=== PATIENT | female | born 1960 | race Caucasian/White ===

== ENCOUNTER 2018-01-27 15:04 | Inpatient (IN) | payer OTHER, MEDICARE ==
[~2018-01-27] VITALS: Ht 157.5 cm; Wt 64.6 kg
[~2018-01-27 15:04] MED LIST: PREDNISONE 20MG20 MG PO
--- NOTE | 2018-01-27 17:52 | ED GENERAL ADULT ---
History of Present Illness General Chief Complaint: General Adult Stated Complaint: LOW BACK PAIN, LT ANKLE PAIN, URGENT URINATION Source: patient, old records Exam Limitations: no limitations Allergies Coded Allergies: venom-honey bee (bee venom (honey bee)) (THROAT CLOSES 11/26/15) Uncoded Allergies: ANY INSECT BITES (WELTS 01/27/18) Reconcile Medications Atorvastatin Calcium 10 MG TABLET 1 TAB PO DAILY CHOLESTEROL (Reported) Baclofen 10 MG TABLET 1 TAB PO 5XDAILY MUSCLE RELAXER (Reported) Cyanocobalamin (Vitamin B-12) (Cyanocobalamin Injection) 1,000 MCG/ML VIAL 1 ML IM QWED SUPPLEMENT (Reported) Dextroamphetamine/Amphetamine (Dextroamp-Amphetamin 10 MG Tab) 10 MG TABLET 1 TAB PO TID ALERTNESS (Reported) Diazepam 2 MG TABLET 1 TAB PO TID MUSCLE SPASMS (Reported) Duloxetine HCl 60 MG CAPSULE.DR 1 CAP PO DAILY DEPRESSION (Reported) Furosemide 20 MG TABLET 1 TAB PO DAILY PRN LEG SWELLING (Reported) ONLY NEEDED FOR LEG SWELLING Gabapentin 600 MG TABLET 1 TAB PO 5XDAILY NERVE PAIN (Reported) Hydrocodone/Acetaminophen (Hydrocodon-Acetaminoph 7.5-325) 7.5 MG-325 MG TABLET 1 TAB PO Q6PRN PRN PAIN (Reported) Latanoprost (Xalatan) 0.005 % DROPS 1 GTT OU QPM GLAUCOMA (Reported) Levothyroxine Sodium (Synthroid) 150 MCG TABLET 1 TAB PO DAILY THYROID ( Reported) Lisinopril 5 MG TABLET 1 TAB PO QHS BP (Reported) Lubiprostone (Amitiza) 8 MCG CAPSULE 1 CAP PO DAILY GI (Reported) Mirabegron (Myrbetriq) 50 MG TAB.ER.24H 1 TAB PO DAILY BLADDER (Reported) Olanzapine 10 MG TABLET 1 TAB PO DAILY ANXIETY (Reported) Oxycodone HCl (Oxycontin) 10 MG TAB.ER.12H 1 TAB PO TID PAIN (Reported) Oxycodone HCl (Oxycontin) 10 MG TAB.ER.12H 1 TAB PO TID PAIN (Reported) Pantoprazole Sodium 20 MG TABLET.DR 1 TAB PO DAILY GI (Reported) Prednisone 50 MG TABLET 1 TAB PO AD STEROID (Reported) TAKES IT NEEDED DURING AN EXACERBATION, NOT ON A DAILY BASIS Venlafaxine HCl (Venlafaxine HCl ER) 150 MG CAP.ER.24H 2 CAP PO DAILY DEPRESSION (Reported) Zolpidem Tartrate 10 MG TABLET 1 TAB PO QHS PRN SLEEP (Reported) Triage Note: PT TO ER STATES THAT SHE HAS MS AND THAT SHE HAD HER INFUSION TODAY AND DECIDED TO COME TO ER DUE TO SHE IS HAVING LOW BACK PAIN AND L FOOT PAIN AFTER A FALL ABOUT 1.5 WEEKS AGO. ALSO STATES THAT SHE STRAIGHT CATHS HERSELF BUT WHILE AT HER TREATMENT SHE VOIDED A LITTLE BIT IN HER PANTS Triage Nurses Notes Reviewed? yes Onset: Abrupt Duration: week(s):, constant, getting worse Timing: recent history Injury Environment: home Severity: moderate, severe Severity Numbers: 10 No Modifying Factors: none Associated Symptoms: denies HPI: 57 year-old female with past medical history of multiple sclerosis, HTN, hld, depression and hypothyroidism presents to the ER complaining of symptoms consistent with an MS exacerbation she reports history of similar episodes in the past. She states over the past several weeks she has had multiple falls at home including in the shower sustaining injury to her left ankle and lower back. Her last fall was a week ago. She denies loss of consciousness during these episodes she states she falls secondary to her chronic weakness. She is followed by neurologist Dr. tamez- on citoxan infiusions every 21 days. last infusion today. no Fever no chills (David Hopkins) Vital Signs & Intake/Output Vital Signs & Intake/Output Vital Signs Date Time Temp Pulse Resp B/P B/P Pulse O2 O2 Flow FiO2 Mean Ox Delivery Rate 01/278 97.2 92 18 115/73 98 Room Air 01/27 1930 98 18 123/73 01/27 1509 97.0 114 18 138/74 98 Room Air (Yeny OLMOS,Oracio Moore) Past History Travel History Traveled to [place] past 21 day No Medical History Any Pertinent Medical History? 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 No (David Hopkins) Review of Systems Review of Systems Constitutional: Reports: see HPI. Comments Review of systems: See HPI, All other systems negative. Constitutional, no chills no fever HEENT: no sore throat no congestion Cardiovascular: No chest pain Skin: no rashes, no change in skin Respiratory: No dyspnea no cough no sputum gI: no nausea, no vomiting : No dysuria No hematuria, no frequency Muscle skeletal: see hpi Neurologic: , no headache Psych: No stress Heme/endocrine: No bruising Immunology: No lymphadenopathy (David Hopkins) Physical Exam Physical Exam General Appearance: well developed/nourished, alert, awake Comments: Well-developed well-nourished person in no acute distress HEENT: Normal EENT exam; PERRL, EOMI, no nystagmus. HEAD is atraumatic. moist mucous membranes. Neck: Supple, normal range of motion Back: Atraumatic right-sided paralumbar tenderness on patient no midline tenderness, no CVA tenderness. Full range of motion Cardiovascular: Regular rate and rhythms no murmurs rubs or gallops, normal JVP Respiratory: Chest nontender.There were no bony deformities, no asymmetry. No respiratory distress. Patient speaking in full complete sentences. Breath sounds clear to auscultation bilaterally: NO W/R/R Abdomen: Soft, nontender nondistended, no appreciable organomegaly. Normal bowel sounds. No rebound/guarding, No appreciable enlargement of the abdominal aorta, No ascites. Upper Extremity: No edema, full range of motion of extremities, 5 out of 5 strength noted to bilateral upper extremities Hip/Pelvis: Atraumatic/Stable. FROM. No pain with pelvic compression Knee: Atraumatic/stable. FROM. No joint swelling, no effusion. No laxity. Negative martita/anterior drawer test. No pain with ROM Leg: Atraumatic. Nontender. No edema, 5 out of 5 strength in the lower extremity, normal dorsiflexion of great toe bilaterally, gross sensation is intact, patellar tendon reflex 2+ bilaterally. Ankle/Foot: Ankle with moderate tenderness laterally over the lateral ligaments. No bony tenderness. No medial tenderness. Range of motion is near full but somewhat limited due to pain. No instability is noted. Skin is intact, swelling noted to the lateral malleolus tenderness to palpation the foot is neurovascularly intact with sensation and motor grossly intact. There is no foot tenderness or fifth metatarsal tenderness. Able to move all toes. Palpable and intact achilles tendon. There is no proximal tib/fib tenderness Pulses: Normal/equal DP/PT pulses bilaterally. Brisk cap refill Neuro: Alert oriented x3, motor sensory normal, cranial nerves II through XII grossly intact. There were no obvious focal neurologic abnormalities. Skin: No appreciable rash on exposed skin, skin is warm and dry. Psych: Mood and affect is normal, memory and judgment is normal. Core Measures ACS in differential dx? No CVA/TIA Diagnosis: No Sepsis Present: No Sepsis Focused Exam Completed? No (Stephanie GIBSON,David) Progress Differential Diagnoses I considered the following diagnoses in my evaluation of the patient: [ms exacerbation, fx, sprain, contusion, electrolyte abnor, dehydration] Diagnostic Imaging: Viewed by Me: Radiology Read. Discussed w/RAD: Radiology Read. Radiology Impression: PATIENT: EDVIN CHAVEZ PRESENT AGE: 57 PATIENT ACCOUNT NO: [id number] : 61 LOCATION: [facility] ORDERING PHYSICIAN: David GIBSON SERVICE DATE: 01/27/18 EXAM TYPE: RAD - XRY- ANKLE 3 OR MORE VIEWS L EXAMINATION: XR ANKLE, LEFT CLINICAL INFORMATION: Pain after fall COMPARISON: None TECHNIQUE: AP, lateral, and mortise views of the left ankle. FINDINGS: Soft tissues of the lateral ankle are mildly swollen. The talar dome is well-positioned within the intact ankle mortise. Ankle joint space and syndesmotic space are normal. No evidence of acute fracture or subluxation. The visualized tarsal bones and metatarsal bases are unremarkable. IMPRESSION: Post traumatic soft tissue swelling of the lateral ankle. No acute fracture or subluxation. DICTATED BY: Tk León MD DATE/TIME DICTATED:01/27/181923 SPECIMEN BOSS:RANDALL DATE/TIME TRANSCRIBED:01/27/181923 CONFIDENTIAL, DO NOT COPY WITHOUT APPROPRIATE AUTHORIZATION. <Electronically signed in Other Vendor System> SIGNED BY: Tk León MD 01/27/181927, PATIENT: EDVIN CHAVEZ RECORD NO: [id number] PRESENT AGE: 57 PATIENT ACCOUNT NO: [id number] : 62 LOCATION: [facility] ORDERING PHYSICIAN: David GIBSON SERVICE DATE : 01/27/18 EXAM TYPE: RAD - XRY-LUMBOSACRAL SPINE AP & LAT EXAMINATION: XR LUMBOSACRAL SPINE CLINICAL INFORMATION: Status post fall with right-sided pain COMPARISON: Radiographs from 08/22/2008. CT images of the abdomen from 2014. TECHNIQUE: Lumbosacral spine, 3 views FINDINGS: No acute findings compared to 10/22/2014. Chronic, severe degenerative disc disease of L3-L4, L4-L5 and L5- S1 as manifest by loss of disc space, vacuum disc phenomenon, endplate sclerosis , endplate irregularity and osteophytosis. There is chronic, moderate, predominantly left-sided disc space loss at L2-L3. Levoscoliosis of 14 degrees is measured from the superior endplate of L3 to the inferior endplate of L4. No acute fractures in the anterior or posterior elements. The sacrum and sacroiliac joints are unremarkable. Spinal electrodes enter the posterior epidural space at the T12-L1 level and ascend into the thoracic spinal canal. IMPRESSION: 1. No evidence of acute fracture or traumatic subluxation within the lumbar spine. 2. Chronic severe, multilevel degenerative disc disease and levoscoliosis of the lumbar spine in this patient with history of multiple sclerosis. Consider possibility of Charcot spinal arthropathy. DICTATED BY: Tk León MD DATE/ TIME DICTATED:01/27/181924 SPECIMEN BOSS:ARNDALL DATE/TIME TRANSCRIBED: 01/27/181924 CONFIDENTIAL, DO NOT COPY WITHOUT APPROPRIATE AUTHORIZATION. < Electronically signed in Other Vendor System> SIGNED BY: Tk León MD 01/27/181933 Initial ED EKG: none (Stephanie GIBSON,David) Plan of Care: Orders Procedure Date/time Status Regular Diet 01/28 B Active XRY-PORTABLE CHEST XRAY 01/28 2112 Active Intake & Output 01/28 2056 Active Patient Data 01/28 2008 Active Misc Message 01/28 1952 Active ED Holding Orders 01/28 1952 Active Admit to inpatient 01/28 1952 Active Vital Signs 01/28 1952 Active Code Status 05/24 1952 Active COMPREHENSIVE METABOLIC PANEL 01/27 1736 Complete CBC WITHOUT DIFFERENTIAL 01/27 173 Complete URINALYSIS 01/27 1512 Complete Current Medications Sig/Tess Start time Last Medication Dose Stop Time Status Admin Methylprednisolone 1,000 MG 1800 01/28 1800 UNVr (Solu Medrol) Dextrose/Water 1,000 ML (D5W 1000) Laboratory Tests 01/27/18 1753: Anion Gap 14, Estimated GFR > 60, BUN/Creatinine Ratio 26.3 H, Glucose 163 H, Calcium 10.3 H, Total Bilirubin 0.5, AST 84 H, ALT 65 H, Alkaline Phosphatase 107, Total Protein 7.7, Albumin 4.8, Globulin 2.9, Albumin/Globulin Ratio 1.7, CBC w Diff NO MAN DIFF REQ, RBC 4.01 L, MCV 94.2, MCH 31.9 H, MCHC 33.9, RDW 13.6, MPV 7.7, Gran % 93.8 H, Lymphocytes % 5.4 L, Monocytes % 0.6 L, Eosinophils % 0.1, Basophils % 0.1, Absolute Granulocytes 7.8 H, Absolute Lymphocytes 0.4 L, Absolute Monocytes 0 L, Absolute Eosinophils 0, Absolute Basophils 0 01/27/18 1631: Urine Color YEL, Urine Clarity CLEAR, Urine pH 6.0, Ur Specific [place] 1.015, Urine Protein NEG, Urine Ketones NEG, Urine Nitrite NEG, Urine Bilirubin NEG, Urine Urobilinogen 0.2, Ur Leukocyte Esterase TRACE H, Ur Microscopic SEDIMENT EXAMINED, Urine RBC RARE, Urine WBC RARE, Ur Epithelial Cells FEW, Urine Bacteria MOD H, Urine Hemoglobin NEG, Urine Glucose NEG Discussed with patient plan of care medicated with Dilaudid 1 mg IV x-rays ordered labs ordered. I spoke with the patient's neurologist Dr. tamez- advised to start the patient on 1 g Solu-Medrol daily agrees with plan otherwise. Case discussed with Dr. Saini agrees with plan (Stephanie GIBSON,David) (Yeny OLMOS,Oracio Moore) Departure Departure Time of Disposition: 1947 Disposition: STILL A PATIENT Condition: Stable Clinical Impression Primary Impression: Exacerbation of multiple sclerosis Secondary Impressions: Frequent falls Referrals: Allie Jack MD (PCP/Family) Departure Forms: Customer Survey General Discharge Information Admission Note Spoke With: Georgia Duron MD Documentation of Exam: Documentation of any treatments & extenuating circumstances including Concerns Regarding Discharge (functional status, medication knowledge or non-compliance, living conditions, etc.) that warrant an admission rather than observation: [ ivsteroids, pain control,neuro, pt consult multiple falls, premature discharge would be medically harmul (David Hopkins) PA/SPECIFICATION CONSULTANT Co-Sign Statement Statement: ED Attending supervision documentation- [X] I saw and evaluated the patient. I have also reviewed all the pertinent lab results and diagnostic results. I agree with the findings and the plan of care as documented in the PA's/SPECIFICATION CONSULTANT's documentation. Patient presents for evaluation of recent falling, past history of multiple sclerosis. Patient has had low back pain and left ankle pain as a result of her falls. Physical examination reveals mild swelling of the left ankle and decreased range of motion of the back secondary to discomfort. [] I have reviewed the ED Record and agree with the PA's/SPECIFICATION CONSULTANT's documentation. [] Additions or exceptions (if any) to the PAs/SPECIFICATION CONSULTANT's note and plan are summarized below: [] (Yeny OLMOS,Oracio Moore) Critical Care Note Critical Care Note Critical Care Time: non-applicable (David Hopkins)
[2018-01-27 18:07] LABS: ABSOLUTE BASOPHIL COUNT 0 /CUMM (0.0-0.2); ABSOLUTE EOSINOPHIL COUNT 0 /CUMM (0.0-0.7); ABSOLUTE GRANULOCYTE CT 7.8 /CUMM (1.4-6.5); ABSOLUTE LYMPH COUNT 0.4 /CUMM (1.2-3.4); ABSOLUTE MONOCYTE COUNT 0 /CUMM (0.10-0.60); BASOPHIL % 0.1 % (0.0-2.0); EOSINOPHIL % 0.1 % (0-5); HEMATOCRIT 37.8 % (37-47); MEAN CORPUSCULAR HGB 31.9 PG (27.0-31.0); MEAN CORPUSCULAR HGB CONC 33.9 G/DL (33.0-37.0); MEAN CORPUSCULAR VOLUME 94.2 FL (81.0-99.0); MEAN PLATELET VOLUME 7.7 FL (7.4-10.4); PLATELET COUNT 282 /CUMM (130-400); RBC DISTRIBUTION WIDTH 13.6 % (11.5-14.5); RED BLOOD CELL CT 4.01 /CUMM (4.20-5.40); WHITE BLOOD CELL COUNT 8.4 /CUMM (4.8-10.8)
[2018-01-27 18:18] LABS: GRANULOCYTE % 93.8 % (42.2-75.2)
--- NOTE | 2018-01-27 19:28 | RADIOLOGY REPORT ---
EXAMINATION: XR ANKLE, LEFT CLINICAL INFORMATION: Pain after fall COMPARISON: None TECHNIQUE: AP, lateral, and mortise views of the left ankle. FINDINGS: Soft tissues of the lateral ankle are mildly swollen. The talar dome is well-positioned within the intact ankle mortise. Ankle joint space and syndesmotic space are normal. No evidence of acute fracture or subluxation. The visualized tarsal bones and metatarsal bases are unremarkable. IMPRESSION: Post traumatic soft tissue swelling of the lateral ankle. No acute fracture or subluxation.
--- NOTE | 2018-01-27 19:34 | RADIOLOGY REPORT ---
EXAMINATION: XR LUMBOSACRAL SPINE CLINICAL INFORMATION: Status post fall with right-sided pain COMPARISON: Radiographs from 08/22/2008. CT images of the abdomen from 10/22/2014. TECHNIQUE: Lumbosacral spine, 3 views FINDINGS: No acute findings compared to 10/22/2014. Chronic, severe degenerative disc disease of L3-L4, L4-L5 and L5-S1 as manifest by loss of disc space, vacuum disc phenomenon, endplate sclerosis, endplate irregularity and osteophytosis. There is chronic, moderate, predominantly left-sided disc space loss at L2-L3. Levoscoliosis of 14 degrees is measured from the superior endplate of L3 to the inferior endplate of L4. No acute fractures in the anterior or posterior elements. The sacrum and sacroiliac joints are unremarkable. Spinal electrodes enter the posterior epidural space at the T12-L1 level and ascend into the thoracic spinal canal. IMPRESSION: 1. No evidence of acute fracture or traumatic subluxation within the lumbar spine. 2. Chronic severe, multilevel degenerative disc disease and levoscoliosis of the lumbar spine in this patient with history of multiple sclerosis. Consider possibility of Charcot spinal arthropathy.
[2018-01-27] MEDS ORDERED: XALATAN2.5 ML OU (19:44)
[2018-01-27] MEDS ORDERED: CYANOCOBAL1000 MCG/2 IM (19:45)
[2018-01-27] MEDS ORDERED: GABAPENTIN600 M1 PO (19:45)
[2018-01-27] MEDS ORDERED: SYNTHROID150 MCG PO (19:46)
[2018-01-27] MEDS ORDERED: ZOLPIDEM TARTRA10 M1 PO (19:46)
[2018-01-27] MEDS ORDERED: OXYCONTIN10 M1 PO ×2 (19:46→21:16)
[2018-01-27] MEDS ORDERED: DIAZEPAM2 M1 PO (19:46)
[2018-01-27] MEDS ORDERED: HYDROCODON-ACE1 EAC2 PO (19:47)
[2018-01-27] MEDS ORDERED: ATORVASTATIN CA10 M1 PO (19:47)
[2018-01-27] MEDS ORDERED: DEXTROAMP-AMPHE10 MG PO (19:47)
[2018-01-27] MEDS ORDERED: MYRBETRIQ50 M1 PO (19:47)
[2018-01-27] MEDS ORDERED: PANTOPRAZOLE SO20 M1 PO (19:50)
[2018-01-27] MEDS ORDERED: DULOXETINE HCL60 MG PO (19:50)
[2018-01-27] MEDS ORDERED: PREDNISONE50 M1 PO (19:51)
[2018-01-27] MEDS ORDERED: LISINOPRIL5 M1 PO (19:51)
[2018-01-27] MEDS ORDERED: AMITIZA8 MC1 PO (19:52)
[2018-01-27] MEDS ORDERED: VENLAFAXINE HC150 MG PO (19:52)
[2018-01-27] MEDS ORDERED: BACLOFEN10 M1 PO (19:55)
[2018-01-27] MEDS ORDERED: OLANZAPINE10 M1 PO (19:56)
--- NOTE | 2018-01-27 20:15 | History & Physical ---
BrianThais Magdaleno Marko 01/27/18 2009: General Information and HPI MD Statement: I have seen and personally examined EDVIN CHAVEZ and documented this H&P. The patient is a 57 year old F who presented with a patient stated chief complaint of [MS Exacerbation]. Source of Information: patient, old records Exam Limitations: no limitations History of Present Illness: Ms. Chavez is a 57yo F w/ PMH of multiple sclerosis, hypertension, hyperlipidemia , GERD, IBS, diverticulosis, urinary incontinence with self catheter, rheumatoid arthritis, anxiety/depression, hypothyroidism, symptoms consistent with an MS exacerbation she reports history of similar episodes in the past. She states over the past several weeks she has had multiple falls at home including in the shower sustaining injury to her left ankle and lower back. Her last fall was a week ago. She denies loss of consciousness during these episodes she states she falls secondary to her chronic weakness. She is followed by neurologist Dr. tamez- on citoxan infiusions every 21 days. last infusion today. no Fever no chills During our clinical interaction, patient denied fever/lightheadedness/ diaphoresis/night sweat/weight change/cough/SOB/Chest Pain/Palpitation/Abdominal pain/bowel movement or urinary abnormality, or other skin/musculoskeletal/ neurological/mood disorders, or dietary/appetite change. -Smoking: -Alcohol: -Rec Drugs: On admission, Vitals: Afebrile, tachycardia 114, RR 18, BP 130/74, 98% on room air Physical exam -Gen.: AO x3, cooperative, no distress, -HEENT: NCAT, PERRL, EOMI, anicteric sclera, moist mucous membranes -Neck: Supple, no JVD, trachea midline, mild accessory respiratory muscle use -Cardio: Normal S1/S2 without significant murmurs/gallops/rubs -Pulmonary: grossly normal air movement w/ clear auscultation -Abdomen: Soft, nontender, nondistended, bowel sounds intact -Neuro: Awake and alert, cranial nerves II through XII grossly intact -Extremity: Normal pulses/capillary refill, no cyanosis/clubbing/edema -CBC: Unremarkable except for granulocytes 93.8% -BMP: Unremarkable except BUN 21, calcium 10.3 (albumin 4.8), -XR lumbar spine: 1. No evidence of acute fracture or traumatic subluxation within the lumbar spine. 2. Chronic severe, multilevel degenerative disc disease and levoscoliosis of the lumbar spine in this patient with history of multiple sclerosis. Consider possibility of Charcot spinal arthropathy. -Interventions in ER: Solu-Medrol 1000 mg 1 Problem list & Assessment: #Multiple sclerosis exacerbation Hospital Course: - Admit to general medicine -Nursing (O2, TRCNeb, SS/Accuchek, Neurocheck) -PT/OT -Fluids -Meds -Hold Meds -Consult -Misc todo -Lab -Microbiology -Pain DVT prophylaxis Heparin + ALPS Regular Diet Full Code Allergies/Medications Allergies: Coded Allergies: venom-honey bee (bee venom (honey bee)) (THROAT CLOSES 11/26/15) Uncoded Allergies: ANY INSECT BITES (WELTS 01/27/18) Home Med list Atorvastatin Calcium 10 MG TABLET 1 TAB PO DAILY CHOLESTEROL (Reported) Baclofen 10 MG TABLET 1 TAB PO 5XDAILY MUSCLE RELAXER (Reported) Cyanocobalamin (Vitamin B-12) (Cyanocobalamin Injection) 1,000 MCG/ML VIAL 1 ML IM QWED SUPPLEMENT (Reported) Dextroamphetamine/Amphetamine (Dextroamp-Amphetamin 10 MG Tab) 10 MG TABLET 1 TAB PO TID ALERTNESS (Reported) Diazepam 2 MG TABLET 1 TAB PO TID MUSCLE SPASMS (Reported) Duloxetine HCl 60 MG CAPSULE.DR 1 CAP PO DAILY DEPRESSION (Reported) Furosemide 20 MG TABLET 1 TAB PO DAILY PRN LEG SWELLING (Reported) ONLY NEEDED FOR LEG SWELLING Gabapentin 600 MG TABLET 1 TAB PO 5XDAILY NERVE PAIN (Reported) Hydrocodone/Acetaminophen (Hydrocodon-Acetaminoph 7.5-325) 7.5 MG-325 MG TABLET 1 TAB PO Q6PRN PRN PAIN (Reported) Latanoprost (Xalatan) 0.005 % DROPS 1 GTT OU QPM GLAUCOMA (Reported) Levothyroxine Sodium (Synthroid) 150 MCG TABLET 1 TAB PO DAILY THYROID ( Reported) Lisinopril 5 MG TABLET 1 TAB PO QHS BP (Reported) Lubiprostone (Amitiza) 8 MCG CAPSULE 1 CAP PO DAILY GI (Reported) Mirabegron (Myrbetriq) 50 MG TAB.ER.24H 1 TAB PO DAILY BLADDER (Reported) Olanzapine 10 MG TABLET 1 TAB PO DAILY ANXIETY (Reported) Oxycodone HCl (Oxycontin) 10 MG TAB.ER.12H 1 TAB PO TID PAIN (Reported) Oxycodone HCl (Oxycontin) 10 MG TAB.ER.12H 1 TAB PO TID PAIN (Reported) Pantoprazole Sodium 20 MG TABLET.DR 1 TAB PO DAILY GI (Reported) Prednisone 50 MG TABLET 1 TAB PO AD STEROID (Reported) TAKES IT NEEDED DURING AN EXACERBATION, NOT ON A DAILY BASIS Venlafaxine HCl (Venlafaxine HCl ER) 150 MG CAP.ER.24H 2 CAP PO DAILY DEPRESSION (Reported) Zolpidem Tartrate 10 MG TABLET 1 TAB PO QHS PRN SLEEP (Reported) Past History Travel History Traveled to [place] past 21 day No Medical History Neurological: multiple sclerosis EENT: NONE Cardiovascular: hypertension, hyperlipidemia Respiratory: NONE Gastrointestinal: GERD, irritable bowel syndrome, DIVERTICULOSIS Hepatic: NONE Renal: urinary incontinence, SELF CATHETER PRN Musculoskeletal: rheumatoid arthritis, [place] Psychiatric: anxiety, depression Endocrine: hypothyroidism Blood Disorders: NONE Cancer(s): "CHEMO FOR MS" CUTTER AND PRESSER/Reproductive: NONE Pneumonia Vaccine: 04/30/12 Surgical History Surgical History: non-contributory Past Family/Social History Psychosocial History Services at Home: None ETOH Use: denies use Illicit Drug Use: denies illicit drug use Review of Systems Review of Systems Constitutional: Reports: see HPI. Exam & Diagnostic Data Last 24 Hrs of Vital Signs/I&O Vital Signs Date Time Temp Pulse Resp B/P B/P Pulse O2 O2 Flow FiO2 Mean Ox Delivery Rate 01/27 1509 97.0 114 18 138/74 98 Room Air Intake & Output 01/27 1600 01/27 0800 01/27 0000 Intake Total Output Total Balance Patient 63.503 kg Weight Last 24 Hrs of Labs/Tae: Laboratory Tests 01/27/18 1753: Anion Gap 14, Estimated GFR > 60, BUN/Creatinine Ratio 26.3 H, Glucose 163 H, Calcium 10.3 H, Total Bilirubin 0.5, AST 84 H, ALT 65 H, Alkaline Phosphatase 107, Total Protein 7.7, Albumin 4.8, Globulin 2.9, Albumin/Globulin Ratio 1.7, CBC w Diff NO MAN DIFF REQ, RBC 4.01 L, MCV 94.2, MCH 31.9 H, MCHC 33.9, RDW 13.6, MPV 7.7, Gran % 93.8 H, Lymphocytes % 5.4 L, Monocytes % 0.6 L, Eosinophils % 0.1, Basophils % 0.1, Absolute Granulocytes 7.8 H, Absolute Lymphocytes 0.4 L, Absolute Monocytes 0 L, Absolute Eosinophils 0, Absolute Basophils 0 01/27/18 1631: Urine Color YEL, Urine Clarity CLEAR, Urine pH 6.0, Ur Specific Harrison 1.015, Urine Protein NEG, Urine Ketones NEG, Urine Nitrite NEG, Urine Bilirubin NEG, Urine Urobilinogen 0.2, Ur Leukocyte Esterase TRACE H, Ur Microscopic SEDIMENT EXAMINED, Urine RBC RARE, Urine WBC RARE, Ur Epithelial Cells FEW, Urine Bacteria MOD H, Urine Hemoglobin NEG, Urine Glucose NEG Assessment/Plan As Ranked By This Provider Problem List: 1. Frequent falls 2. Exacerbation of multiple sclerosis Core Measures/Misc (05/23) Acute Coronary Syndrome ACS Diagnosis: No Congestive Heart Failure Congestive Heart Failure Diagnosis No Cerebrovascular Accident CVA/TIA Diagnosis: No VTE (View Protocol) VTE Risk Factors Age>40 No Mechanical VTE Prophylaxis d/t N/A MechProphylax Ordered No VTE Pharm Prophylaxis d/t NA PharmProphylax ordered Sepsis (View protocol) Sepsis Present: No If YES complete Sepsis Event Note If YES complete Sepsis Event Note Blair Whitehead 01/27/182024: Core Measures/Misc (05/23) Sepsis (View protocol) If YES complete Sepsis Event Note If YES complete Sepsis Event Note Resident Review Statement Resident Statement: discussed with internship coordinator, agreed with internship coordinator Other Findings: Ms Chavez is a 57 year old woman w/ a PMHx of primary progressive MS, hypertension, hyperlipidemia, major depression, hypothyroidism came to the hospital with a chief concern of multiple falls recently, and had pain in her left ankle and lower back. Reported fall 1 week ago. Also reported urinary incontinence. She sees Dr. Dave zavala for the management of multiple sclerosis , and gets rituximab infusions every 21 days. She got her infusion today. ROS: At the time of admission-temperature 97.0, pulse rate 114, respiration 18, blood pressure 138/74, pulse ox 98% on room air. General Exam: AAOx3, No acute distress, Skin: No rashes, no breakdown;HEENT: PERRLA, EOMI;Neck: Supple, No JVD; No cervical lymphadenopathy;CVS: Reg Rate, Normal S1,S2, No MGR;Resp: Normal air entry, no ronchi/rales;Abdomen: Soft, No tenderness, Normal Bowel Sounds;Neuro: Normal Speech, Strength 5/5 b/l x 4 extremities, Sensation intact, CN III-XII NL, Reflexes 2+;Extremities: No cyanosis, no pedal edema Mental status: alert, oriented to person, place, time. Short-term memory not impaired, remote memory not impaired; no language abnormalities were demonstrated, affect was normal. Cranial nerves: Sensation to face, and masseter strength were intact. Facial strength was intact bilaterally. Hearing was intact, normal movement of soft palate, shoulder shrug was intact bilaterally, there was no tongue deviation with protrusion, optic nerve was not impaired. PERRL, funduscopic exam was not done, oculomotor nerve was not impaired, trochlear nerve was not impaired, abducens nerve was not impaired, Motor exam: Muscle tone was normal, muscle bulk was normal, motor strength was normal, motor strength of upper extremities and lower extremities was normal, no fasciculations, no involuntary movements seen. No tremor was noted. Sensory exam: No sensory abnormalities, Romberg sign was absent, normal response to pain and temperature stimulation, normal response to vibration. Reflexes: Deep tendon reflexes normal. Coordination: Balance was not impaired. Gait and stance: was not abnormal. WBC 8.4, with 93.8% granulocytosis, hemoglobin 12.8, platelets 282. Sodium 138, potassium 5.0, bicarb 24, anion gap 14, BUN 21, creatinine 0.8. Calcium 10.3, total bilirubin 0.5. AST 84, ALT 65, alkaline phosphatase 107. She was screened for HepB. Urinalysis clear. Ankle left-x-ray 01/27/2018 Post traumatic soft tissue swelling of the lateral ankle. No acute fracture or subluxation. X-ray lumbosacral spine-01/27/20181. No evidence of acute fracture or traumatic subluxation within the lumbar spine.Chronic severe, multilevel degenerative disc disease and levoscoliosis of the lumbar spine in this patient with history of multiple sclerosis. Consider possibility of Charcot spinal arthropathy. Etiology in her case is likely due to MS exacerbation, with increased falls secondary to worsening neurological weakness. She also has urinary incontinence , but no evidence of cord compression syndrome. She has an incidental elevation of liver function. Problem list: #1 MS exacerbation #2 dehydration #3 history of hyperlipidemia #4 history of hypertension #5 history of depression #6 Hypercalcemia 1. Solumedrol iv 1gm daily. 2. MRI head and spine. Final recs after discussing with the attending... Oliverio OLMOS, [facility] 01/27/182044: Core Measures/Misc (05/23) Sepsis (View protocol) If YES complete Sepsis Event Note If YES complete Sepsis Event Note Attending MD Review Statement Attending Statement Attending MD Statement: examined this patient, discuss w/resident/PA/SALES SERVICE REPRESENTATIVE, agreed w/resident/PA/SALES SERVICE REPRESENTATIVE, reviewed images, amended to note
--- NOTE | 2018-01-27 20:45 | Admission Certification ---
Admission Certification Certification Statement - As attending physician, I certify that at the time of - admission, based on clinical presentation, severity of - symptoms, need for further diagnostic testing and - therapeutic interventions, and risk of adverse outcomes - without in-hospital treatment, in my clinical assessment, - this patient requires an acute hospital stay for a minimum - of two nights or longer. I have also considered psychsocial - factors such as support system, advanced age, financial - issues, cognitive issues, and failed out-patient treatments, - past re-admission history, safety of patient, and lack of - compliance as applicable. Specific rationale supporting this admission is: MS exacerbation
[2018-01-27] MEDS ORDERED: FUROSEMIDE20 M1 PO (21:13)
[2018-01-27] MEDS ORDERED: HYDROCODON-ACE1 EAC3 PO (21:16)
--- NOTE | 2018-01-27 21:38 | History & Physical ---
Blair Whitehead 01/27/182136: General Information and HPI MD Statement: I have seen and personally examined EDVIN CHAVEZ and documented this H&P. The patient is a 57 year old F who presented with a patient stated chief complaint of back pain, multiple falls. Source of Information: patient, old records Exam Limitations: no limitations History of Present Illness: Ms Aj is a 57 year old woman w/ a PMHx of primary progressive MS(dx'ed 20yrs ago, currently on cyclophosphamide x 16yrs), hypertension, hyperlipidemia, major depression, hypothyroidism came to the hospital with a chief concern of multiple falls recently, and had pain in her left ankle and lower back after the fall. She was known to be in her usual state of health until 1 month ago. She reported to have a mechanical fall injuring her left ankle after which she had gait instability. She did not seek any medical advice at that time. One week ago, she had another mechanical fall at which time she fell on her back. She did not lose her consciousness. She is unsure if she developed any new neurological symptoms in the last 1 month. She is currently on Cytoxan (cyclophosphamide infusion) every 30 days, and was on her way this morning for her usual infusions. She reported "excruciating pain", and had "started seeing colors and couldn't orient" when she had pain in her back while she was walking up to the infusion center. Reported pain in her back, radiating to her legs bilaterally. The pain was not relieved until after she was in the ER. She also reported lightheadedness at the time. She underwent her usual chemotherapy, after which she came to the ER. She also reported urinary incontinence that started a few days ago. She usually straight cath procedure up to 5 times a day as needed. She also sees a urologist for the management of neurogenic bladder. She did not have any dysuria, change in color of her urine. She was not hospitalized in the recent past for any multiple sclerosis exacerbation events, however had multiple ER visits to what her prehospital. She was also on prednisone-oral multiple times, but was not treated with intravenous Solu-Medrol. Reported occasional cough, and sinus congestion, but no fever, or dyspnea. No diarrhea, abdominal pain. No recent history of stroke, seizures or paresthesias. No eye pain, but has some vision abnormalities which she reports as chronic. Current smoker of approximately [id number] smoking history. Nonalcoholic. Family history dementia in father. Currently follows up with ( neurology), Dr. Kathy Whitt ( Endocrinology), ( urology ), Dr. Aguilar ( pain management ). Allergies/Medications Allergies: Coded Allergies: venom-honey bee (bee venom (honey bee)) (THROAT CLOSES 11/26/15) Uncoded Allergies: ANY INSECT BITES (WELTS 01/27/18) Home Med list Atorvastatin Calcium 10 MG TABLET 1 TAB PO DAILY CHOLESTEROL (Reported) Baclofen 10 MG TABLET 1 TAB PO 5XDAILY MUSCLE RELAXER (Reported) Cyanocobalamin (Vitamin B-12) (Cyanocobalamin Injection) 1,000 MCG/ML VIAL 1 ML IM QWED SUPPLEMENT (Reported) Dextroamphetamine/Amphetamine (Dextroamp-Amphetamin 10 MG Tab) 10 MG TABLET 1 TAB PO TID ALERTNESS (Reported) Diazepam 2 MG TABLET 1 TAB PO TID MUSCLE SPASMS (Reported) Duloxetine HCl 60 MG CAPSULE.DR 1 CAP PO DAILY DEPRESSION (Reported) Furosemide 20 MG TABLET 1 TAB PO DAILY PRN LEG SWELLING (Reported) ONLY NEEDED FOR LEG SWELLING Gabapentin 600 MG TABLET 1 TAB PO 5XDAILY NERVE PAIN (Reported) Hydrocodone/Acetaminophen (Hydrocodon-Acetaminophen 5-325) 5 MG-325 MG TABLET 1 TAB PO Q6PRN PRN pain (Reported) Latanoprost (Xalatan) 0.005 % DROPS 1 GTT OU QPM GLAUCOMA (Reported) Levothyroxine Sodium (Synthroid) 150 MCG TABLET 1 TAB PO DAILY THYROID ( Reported) Lisinopril 5 MG TABLET 1 TAB PO QHS BP (Reported) Lubiprostone (Amitiza) 8 MCG CAPSULE 1 CAP PO DAILY GI (Reported) Mirabegron (Myrbetriq) 50 MG TAB.ER.24H 1 TAB PO DAILY BLADDER (Reported) Olanzapine 10 MG TABLET 1 TAB PO DAILY ANXIETY (Reported) Oxycodone HCl (Oxycontin) 10 MG TAB.ER.12H 1 TAB PO BID pain (Reported) Pantoprazole Sodium 20 MG TABLET.DR 1 TAB PO DAILY GI (Reported) Prednisone 50 MG TABLET 1 TAB PO AD STEROID (Reported) TAKES IT NEEDED DURING AN EXACERBATION, NOT ON A DAILY BASIS Venlafaxine HCl (Venlafaxine HCl ER) 150 MG CAP.ER.24H 2 CAP PO DAILY DEPRESSION (Reported) Zolpidem Tartrate 10 MG TABLET 1 TAB PO QHS PRN SLEEP (Reported) Compliance With Home Meds: GOOD Past History Travel History Traveled to [place] past 21 day No Medical History Neurological: multiple sclerosis EENT: NONE Cardiovascular: hypertension, hyperlipidemia Respiratory: NONE Gastrointestinal: GERD, irritable bowel syndrome Hepatic: NONE Renal: urinary incontinence, SELF CATHETER PRN Musculoskeletal: chronic back pain Psychiatric: depression Endocrine: hypothyroidism Blood Disorders: NONE ACCOUNT [employer] SALES/Reproductive: NONE Pneumonia Vaccine: 04/30/12 Surgical History Surgical History: non-contributory Past Family/Social History Psychosocial History Services at Home: None Primary Language: Bermudian Smoking Status: Current Everyday Smoker ETOH Use: denies use Illicit Drug Use: denies illicit drug use Functional Ability ADLs Independent: dressing, eating, toileting, bathing. Ambulation: independent IADLs Independent: shopping, housework, finances, food prep, telephone, transportation , medication admin. Review of Systems Review of Systems Constitutional: Reports: see HPI. Denies: chills, fever. EENTM: Reports: visual changes. Denies: blurred vision, hearing changes. Cardiovascular: Denies: chest pain, palpitations. Respiratory: Reports: cough. Denies: short of breath. GI: Reports: constipation. Denies: diarrhea. Genitourinary: Reports: see HPI. Musculoskeletal: Denies: back pain. Skin: Denies: change in skin color. Neurological/Psychological: Reports: anxiety, depressed. Denies: tremors. Hematologic/Endocrine: Denies: bruising. Exam & Diagnostic Data Last 24 Hrs of Vital Signs/I&O Vital Signs Date Time Temp Pulse Resp B/P B/P Pulse O2 O2 Flow FiO2 Mean Ox Delivery Rate 01/28 2156 Room Air 01/27 2155 97.8 78 18 112/70 93 Room Air 01/27 2138 97.2 92 18 115/73 98 Room Air 01/27 1930 98 18 123/73 01/27 1509 97.0 114 18 138/74 98 Room Air Intake & Output 01/27 1600 01/27 0800 01/27 0000 Intake Total Output Total Balance Patient 140 lb Weight Physical Exam General Appearance Alert, Oriented X3, Cooperative, Mild Distress Skin No Rashes, No Breakdown, No Significant Lesion Skin Temp/Moisture Exam: Warm/Dry Sepsis Skin Exam (color): Normal for Ethnicity HEENT Atraumatic, PERRLA, EOMI, Mucous Membr. moist/pink Neck Supple, No JVD, No thryomegaly, +2 Carotid Pulse wo Bruit Lymphatic Cervical nl Cardiovascular Regular Rate, Normal S1, Normal S2, No Murmurs, Gallops, Rubs Lungs Normal Air Movement Abdomen Normal Bowel Sounds, Soft, No Tenderness, No Hepatospenomegaly, No Masses Neurological Normal Tone, Sensation Intact, Cranial Nerves 3-12 NL, Reflexes 2+, strength 4/5 b/l lower extremities strength 5/5 b/l upper extremities, slow to respond, and tangential while having a conversatoin Extremities No Clubbing, No Cyanosis, No Edema, Normal Pulses, tenderness and swelling of R ankle. Restriction movement secondary to injury Vascular Pulses Symmetrical Sepsis Peripheral Pulse Location: Dorsalis Pedis Sepsis Peripheral Pulse Exam: Normal Sepsis Cap Refill Exam: <2 Sec Body Front and Back (Adult) 1) contractures of R hand Last 24 Hrs of Labs/Tae: Laboratory Tests 01/27/18 1753: Anion Gap 14, Estimated GFR > 60, BUN/Creatinine Ratio 26.3 H, Glucose 163 H, Calcium 10.3 H, Total Bilirubin 0.5, AST 84 H, ALT 65 H, Alkaline Phosphatase 107, Total Protein 7.7, Albumin 4.8, Globulin 2.9, Albumin/Globulin Ratio 1.7, CBC w Diff NO MAN DIFF REQ, RBC 4.01 L, MCV 94.2, MCH 31.9 H, MCHC 33.9, RDW 13.6, MPV 7.7, Gran % 93.8 H, Lymphocytes % 5.4 L, Monocytes % 0.6 L, Eosinophils % 0.1, Basophils % 0.1, Absolute Granulocytes 7.8 H, Absolute Lymphocytes 0.4 L, Absolute Monocytes 0 L, Absolute Eosinophils 0, Absolute Basophils 0 01/27/18 1631: Urine Color YEL, Urine Clarity CLEAR, Urine pH 6.0, Ur Specific [place] 1.015, Urine Protein NEG, Urine Ketones NEG, Urine Nitrite NEG, Urine Bilirubin NEG, Urine Urobilinogen 0.2, Ur Leukocyte Esterase TRACE H, Ur Microscopic SEDIMENT EXAMINED, Urine RBC RARE, Urine WBC RARE, Ur Epithelial Cells FEW, Urine Bacteria MOD H, Urine Hemoglobin NEG, Urine Glucose NEG Diagnostic Data CXR Results An AP view of the chest is provided. FINDINGS: The cardiac silhouette is not enlarged. The mediastinal and hilar contours are unremarkable. There are neither pleural effusions nor pneumothoraces. There are no consolidations. A spinal stimulator is in place. The tip overlies the mid thoracic spine. The osseous structures are stable. IMPRESSION: No evidence for acute disease. Assessment/Plan Assessment: Ms Chavez is a 57 year old woman w/ a PMHx of primary progressive MS, hypertension, hyperlipidemia, major depression, hypothyroidism came to the hospital with a chief concern of multiple falls recently likely secondary to MS exacerbation. At the time of admission-temperature 97.0, pulse rate 114, respiration 18, blood pressure 138/74, pulse ox 98% on room air. WBC 8.4, with 93.8% granulocytosis, hemoglobin 12.8, platelets 282. Sodium 138, potassium 5.0, bicarb 24, anion gap 14, BUN 21, creatinine 0.8. Calcium 10.3, total bilirubin 0.5. AST 84, ALT 65, alkaline phosphatase 107. She was screened for HepB. Urinalysis clear. Ankle left-x-ray 01/27/2018 Post traumatic soft tissue swelling of the lateral ankle. No acute fracture or subluxation. X-ray lumbosacral spine-. No evidence of acute fracture or traumatic subluxation within the lumbar spine.Chronic severe, multilevel degenerative disc disease and levoscoliosis of the lumbar spine in this patient with history of multiple sclerosis. Consider possibility of Charcot spinal arthropathy. Etiology in her case is likely due to MS exacerbation, with increased falls secondary to worsening neurological weakness. She also has urinary incontinence , but no evidence of cord compression syndrome. She has an elevation of liver chemistries, which could be due to medications-cyclophosphamide or fatty infiltration of liver. Since, she doesnt have any symptoms this could be monitored. In regards to her other precipitating factor, it could be due to an infection that is still unclear given her absence of symptoms- dysurea, abdominal pain/diarrhea. She does have some cough, making viral illness a possibility. She also has granulocytosis with normal WBC count likely secondary to cyclophsphamide. Problem list: #1 MS exacerbation ( type unclear at this time, but PMHx reported as primary progressive ) #2 dehydration #3 history of hyperlipidemia #4 history of hypertension #5 history of depression #6 Abnormal liver chemistries #7 Multiple falls #8 Chronic back pain #9 history of irritable bowel syndrome 1. Solumedrol iv 1gm daily. Check blood sugars 3 times a day before meals. Defer the decision to the neurologist, if he would like MRI of brain or spine at this time. No focal neurological deficits ruling out for any acute stroke. 2. Monitor vitals closely. If she develops any fever, or white count which can be masked due to high dose steroids she should be pancultured including LRC, urine culture, blood culture. At this time she should be watched off abx. 3. Pain management w/ oxycontin 10mg by mouth twice a day, gabapentin 600 mg q8h , hydrocodone/acetaminophen 5/325 every 6 hourly when necessary. Continue diazepam 2 mg 3 times a day, baclofen 10 mg 3 times a day for muscle spasms. There is a possibility that there could be an overuse of opiates, that could be leading to multiple falls. She should discuss the adjustment of doses with pain management clinic at the time of discharge. CTPMP checked. 4. She should be continued on venlafaxine 150 mg daily, olanzapine 10 mg daily, duloxetine 60 mg daily, Zolpidem 10mg QPM. Given her complicated medication history, psychiatry could be consulted, if needed. 5. Given her continued use of opiates, and irritable bowel syndrome she should be continued on lubiprostone for bowel regimen. 6. Continue lisinopril at this time. Monitor blood pressure every shift. 7. Continue levothyroxine at her home dose of 150 g daily. 8. Fall precautions, physical therapy evaluation. 9. Recheck LFTs in the a.m. if they do not continue to trend up, would follow as an outpatient. Housekeeping checklist: #1 DVT prophylaxis- heparin subcutaneous heparin. #2 diet-regular diet #3 CODE STATUS-DNR/DNI. #4 GI prophylaxis-Protonix when necessary. #5 medication reconciliation-done. The frequency of some of the medications including baclofen, Vicodin, gabapentin need to be readjusted at the time of discharge. Consults: Neurology-Dr. Blue. As Ranked By This Provider Problem List: 1. Frequent falls 2. Exacerbation of multiple sclerosis 3. depression/ MS/ Hypothyroidism Core Measures/Misc (05/23) Acute Coronary Syndrome ACS Diagnosis: No Congestive Heart Failure Congestive Heart Failure Diagnosis No Cerebrovascular Accident CVA/TIA Diagnosis: No VTE (View Protocol) VTE Risk Factors Acute Medical Illness No Mechanical VTE Prophylaxis d/t LowRisk-No Interven Req'd No VTE Pharm Prophylaxis d/t NA PharmProphylax ordered Sepsis (View protocol) Sepsis Present: No If YES complete Sepsis Event Note If YES complete Sepsis Event Note Oliverio OLMOS, [facility] 01/27/188: Core Measures/Misc (05/23) Sepsis (View protocol) If YES complete Sepsis Event Note If YES complete Sepsis Event Note Attending MD Review Statement Attending Statement Attending MD Statement: examined this patient, discuss w/resident/PA/CLERK ANALYST, agreed w/resident/PA/CLERK ANALYST, reviewed images, amended to note Attending Assessment/Plan: 57 yo F smoker with h/o primary progressive multiple sclerosis on cytoxan infusions once a month, neurogenic bladder, chronic pain s/p spinal cord stimulator, MDD, hypothyroidism, HTN, ?IBS, is here for evaluation of recurrent falls, gait instability, increasing left ankle and lower back pain. About one month ago, patient had a fall injuring her left ankle, resulting in gait instability. She uses a cane at baseline. She had another fall one week ago where she injured her back and reports hitting her head but did not lose consciousness. Since then, her health has deteriorated. She has chronic left sided weakness, and has noticed increasing lower extremity weakness, reduced sensation in both arms and legs, and visual changes (which she had in the past). Her last MS exacerbation requiring IV steroid therapy was in 2011. She follows with Dr. Merino. She also self-catheterizes about 4-5 times a day, but is able to urinate by herself most of the times. She reports urinary incontinence this morning while at the infusion center. She also felt dizzy, nauseous and was unable to orient herself. She then drove herself to the ER. Patient follows with pain management Dr. Trujillo and is on chronic opiate therapy. Vitals stable. Exam: chronic left sided weaknes, power 4/5 on left, 5/5 right, reduced sensation below knees, not co-operative for a complete neuro exam. Labs: BUN 21, Ca 10.3, AST 84, ALT 65, UA negative. Utox positive for opiates, amphetamines and benzos. Left ankle Xray: post traumatic soft tissue swelling of lateral ankle. Lumbar spine Xray: no fracture. Chronic degenerative disc disease and levoscoliosis of lumbar spine. Lumbar spine MRI (2014): disc protrusions and canal stenosis. Assessment and plan: 1. Recurrent fall, gait instability 2. Possible multiple sclerosis exacerbation 3. Left ankle pain and back pain s/p fall 4. Chronic pain syndrome 5. Transaminitis ?drug induced 6. Smoker - Admit to General medicine - Fall precautions - IV solumedrol 1 gm daily for 5 doses - Neuro consult Dr. Merino - PT therapy - Obtain CXR to rule out pneumonia - Supportive therapy with cough syrup and nebs - Pain management with oxycontin, vicodin and gabapentin. - Continue baclofen, valium, cymbalta for muscle spasms - Gentle hydration, monitor LFTs - Straight cath protocol as needed - Smoking cessation, nicotine patch DVT ppx Hep SC. DNR/I.
[2018-01-27 21:55] VITALS: BP 112/70
--- NOTE | 2018-01-27 22:13 | RADIOLOGY REPORT ---
EXAMINATION: CHEST 1 VIEW CLINICAL INFORMATION: Cough. COMPARISON: September 13, 2012. TECHNIQUE: An AP view of the chest is provided. FINDINGS: The cardiac silhouette is not enlarged. The mediastinal and hilar contours are unremarkable. There are neither pleural effusions nor pneumothoraces. There are no consolidations. A spinal stimulator is in place. The tip overlies the mid thoracic spine. The osseous structures are stable. IMPRESSION: No evidence for acute disease.
[2018-01-28] MEDS ORDERED: HYDROCODON-ACE1 EAC2 PO (02:37)
[2018-01-28 05:36] VITALS: BP 118/62
--- NOTE | 2018-01-28 07:13 | PN- Housestaff ---
Subjective Follow-up For: Multiple sclerosis Subjective: Patient seen and examined at bedside. Patient was sitting in a chair comfortably. She complains of back pain of 7 x 10 in severity with no radiation. She denies altered sensation, shooting pain, weakness. Patient says she feels better. Review of Systems Constitutional: Reports: no symptoms, see HPI. Objective Last 24 Hrs of Vital Signs/I&O Vital Signs Date Time Temp Pulse Resp B/P B/P Pulse O2 O2 Flow FiO2 Mean Ox Delivery Rate 01/28 1400 97.4 100 18 112/60 93 Room Air 01/28 0859 77 118/62 01/28 0536 97.8 77 20 118/62 94 Room Air 01/27 2156 Room Air 01/27 2155 97.8 78 18 112/70 93 Room Air 01/27 2138 97.2 92 18 115/73 98 Room Air 01/27 1930 98 18 123/73 01/27 1509 97.0 114 18 138/74 98 Room Air Intake & Output 01/28 1600 01/28 0800 01/28 0000 Intake Total 240 1240 Output Total 700 300 200 Balance -700 -60 1040 Intake, IV 1000 Intake, Oral 240 240 Output, Urine 700 300 200 Patient 142 lb 143 lb Weight Weight Bed scale Measurement Method Physical Exam General Appearance: Alert, Oriented X3, Cooperative, No Acute Distress Cardiovascular: Normal S1, Normal S2, No Murmurs Lungs: Clear to Auscultation Abdomen: Normal Bowel Sounds, Soft, No Tenderness, No Hepatospenomegaly Neurological: Normal Speech, Strength at 5/5 X4 Ext, Normal Tone, Sensation Intact Extremities: No Edema Current Medications: Current Medications Sig/Tess Start time Last Medication Dose Route Stop Time Status Admin Atorvastatin Calcium 10 MG 1700 01/28 1700 AC PO Baclofen 10 MG TID 01/28 09 AC 01/28 PO 1328 Baclofen 10 MG .[5XDAILY] 01/27 2145 DC PO Diazepam 2 MG TID 01/28 2144 AC 01/28 PO 1328 Duloxetine HCl 60 MG DAILY 01/28 0900 AC 01/28 PO 0859 Gabapentin 600 MG Q8 01/27 2200 AC 01/28 PO 1328 Guaifenesin 600 MG Q12 01/28 1500 AC PO Heparin Sodium 5,000 UNIT Q8 01/27 2200 AC 01/28 (Porcine) SC 1328 Hydrocodone Bitart/ 1 TAB Q6P PRN 01/28 0245 CAN Acetaminophen PO Hydrocodone Bitart/ 1 TAB Q6PRN PRN 01/28 0245 AC Acetaminophen PO Hydrocodone Bitart/ 15 ML Q6P PRN 01/27 2200 DC Acetaminophen PO Hydromorphone HCl 0 .STK-MED ONE 01/27 1907 DC .ROUTE Hydromorphone HCl 1 MG ONCE ONE 01/27 1845 DC 01/27 IV 01/27 Levothyroxine Sodium 0.15 MG DAILY AC 01/28 0700 AC 01/28 PO 0535 Lisinopril 5 MG DAILY 01/28 0900 AC 01/28 PO 0859 Lubiprostone 8 MCG DAILY 01/28 09 AC 01/28 PO 0859 Methylprednisolone 1,000 MG 1800 01/28 1800 AC Dextrose/Water 1,000 ML IV Methylprednisolone 1,000 MG ONCE ONE 01/27 1845 DC 01/27 Dextrose/Water 1,000 ML IV 01/27 Mirabegron 50 MG DAILY 01/28 09 AC 01/28 PO 0859 Olanzapine 10 MG DAILY 01/28 0900 AC 01/28 PO 0859 Omeprazole 20 MG DAILY AC 01/28 0700 AC 01/28 PO 0534 Oxycodone HCl 10 MG BID 01/27 2149 01/28 PO 0859 Patient Medication 1 ED ONE ONE 01/28 1430 DC Teaching ED 01/28 1431 Sodium Chloride 1,000 ML Q20H 01/28 0345 DC 01/28 IV 01/28 2344 0534 Venlafaxine HCl 150 MG 0801/28 0800 AC 01/28 PO 0805 Zolpidem Tartrate 10 MG AT BEDTIME NEED.. 01/27 220 AC 01/27 PO 2341 Last 24 Hrs of Lab/Tae Results Last 24 Hrs of Labs/Mics: Laboratory Tests 01/28/18 0644: Anion Gap 11, Estimated GFR > 60, BUN/Creatinine Ratio 27.5 H, Total Bilirubin 0.4, Direct Bilirubin 0.2, AST 68 H, ALT 71 H, Alkaline Phosphatase 111, Total Protein 6.8, Albumin 4.3, CBC w Diff NO MAN DIFF REQ, RBC 3.61 L, MCV 95.3, MCH 32.8 H, MCHC 34.4, RDW 13.9, MPV 7.9, Gran % 91.0 H, Lymphocytes % 7.9 L, Monocytes % 1.1 L, Eosinophils % 0, Basophils % 0, Absolute Granulocytes 6.0, Absolute Lymphocytes 0.5 L, Absolute Monocytes 0.1, Absolute Eosinophils 0, Absolute Basophils 0 01/27/18 1753: Anion Gap 14, Estimated GFR > 60, BUN/Creatinine Ratio 26.3 H, Glucose 163 H, Calcium 10.3 H, Total Bilirubin 0.5, AST 84 H, ALT 65 H, Alkaline Phosphatase 107, Total Protein 7.7, Albumin 4.8, Globulin 2.9, Albumin/Globulin Ratio 1.7, CBC w Diff NO MAN DIFF REQ, RBC 4.01 L, MCV 94.2, MCH 31.9 H, MCHC 33.9, RDW 13.6, MPV 7.7, Gran % 93.8 H, Lymphocytes % 5.4 L, Monocytes % 0.6 L, Eosinophils % 0.1, Basophils % 0.1, Absolute Granulocytes 7.8 H, Absolute Lymphocytes 0.4 L, Absolute Monocytes 0 L, Absolute Eosinophils 0, Absolute Basophils 0 01/27/18 1631: Urine Opiates Screen 1722.00, Methadone Screen 53, Barbiturate Screen < 60, Ur Phencyclidine Scrn < 6.00, Amphetamines Screen > 1450 H, U Benzodiazepines Scrn > 800 H, Urine Cocaine Screen < 50, Urine Cannabis Screen < 5.00, Urine Color YEL, Urine Clarity CLEAR, Urine pH 6.0, Ur Specific [place] 1.015, Urine Protein NEG, Urine Ketones NEG, Urine Nitrite NEG, Urine Bilirubin NEG, Urine Urobilinogen 0.2, Ur Leukocyte Esterase TRACE H, Ur Microscopic SEDIMENT EXAMINED, Urine RBC RARE, Urine WBC RARE, Ur Epithelial Cells FEW, Urine Bacteria MOD H, Urine Hemoglobin NEG, Urine Glucose NEG Assessment/Plan Assessment: Ms Rocha is a 57 year old woman w/ a PMHx of primary progressive MS, hypertension, hyperlipidemia, major depression, hypothyroidism came to the hospital with a chief concern of multiple falls recently. Assessment and plan 1. Multiple sclerosis-exacerbation * Patient admitted for multiple sclerosis exacerbation and being treated with IV Solu-Medrol. Patient says she feels better today. Spoke with Dr. Merino over the phone who suggested to continue IV Solu-Medrol for total 3 days and send the patient home with Medrol Dosepak. At this point he doesn't feel the need for MRI brain/lumbar spine. * Frequent falls-we will place a physical therapy consult to help with the ambulation and gait stability. * Continue rest of her chronic medications. * Schanz home dose Lasix and amphetamine held. Need to confirm with the primary care physician/neurologist if the patient is on the above medications. * Code-full code * Diet-regular diet Problem List: 1. Exacerbation of multiple sclerosis 2. Frequent falls Pain Ratin Pain Location: none Pain Goal: Remain pain free Pain Plan: tylenol Tomorrow's Labs & Rationales: none
[2018-01-28 08:19] LABS: ABSOLUTE BASOPHIL COUNT 0 /CUMM (0.0-0.2); ABSOLUTE EOSINOPHIL COUNT 0 /CUMM (0.0-0.7); ABSOLUTE LYMPH COUNT 0.5 /CUMM (1.2-3.4); ABSOLUTE MONOCYTE COUNT 0.1 /CUMM (0.10-0.60); BASOPHIL % 0 % (0.0-2.0); EOSINOPHIL % 0 % (0-5); HEMATOCRIT 34.3 % (37-47); MEAN CORPUSCULAR HGB 32.8 PG (27.0-31.0); MEAN CORPUSCULAR HGB CONC 34.4 G/DL (33.0-37.0); MEAN CORPUSCULAR VOLUME 95.3 FL (81.0-99.0); MEAN PLATELET VOLUME 7.9 FL (7.4-10.4); PLATELET COUNT 237 /CUMM (130-400); RBC DISTRIBUTION WIDTH 13.9 % (11.5-14.5); RED BLOOD CELL CT 3.61 /CUMM (4.20-5.40); WHITE BLOOD CELL COUNT 6.6 /CUMM (4.8-10.8)
--- NOTE | 2018-01-28 12:35 | PN- Att Addend ---
Attending Addendum Attending Brief Note Patient seen and examined, feels the same. Patient with history of multiple sclerosis is admitted with frequent falls. She is currently treated for possible MS exacerbation. Vital Signs Date Time Temp Pulse Resp B/P B/P Pulse O2 O2 Flow FiO2 Mean Ox Delivery Rate 01/28 0859 77 118/62 01/28 0536 97.8 77 20 118/62 94 Room Air 01/27 2156 Room Air 01/27 2155 97.8 78 18 112/70 93 Room Air 01/27 2138 97.2 92 18 115/73 98 Room Air 01/27 1930 98 18 123/73 01/27 1509 97.0 114 18 138/74 98 Room Air on exam; aox3 nad. cv; s1,s2, rrr resp; clear abd; soft, nt, bs+ ext; no edema Laboratory Tests 01/28 01/27 0644 1753 Chemistry Sodium (137 - 145 mmol/L) 137 138 Potassium (3.5 - 5.1 mmol/L) 4.5 5.0 Chloride (98 - 107 mmol/L) 101 100 Carbon Dioxide (22 - 30 mmol/L) 25 24 Anion Gap (5 - 16) 11 14 BUN (7 - 17 mg/dL) 22 H 21 H Creatinine (0.5 - 1.0 mg/dL) 0.8 0.8 Estimated GFR (>60 ml/min) > 60 > 60 BUN/Creatinine Ratio (7 - 25 %) 27.5 H 26.3 H Glucose (65 - 99 mg/dL) 163 H Calcium (8.4 - 10.2 mg/dL) 10.3 H Total Bilirubin (0.2 - 1.3 mg/dL) 0.4 0.5 Direct Bilirubin (< 0.4 mg/dL) 0.2 AST (14 - 36 U/L) 68 H 84 H ALT (9 - 52 U/L) 71 H 65 H Alkaline Phosphatase (<127 U/L) 111 107 Total Protein (6.3 - 8.2 g/dL) 6.8 7.7 Albumin (3.5 - 5.0 g/dL) 4.3 4.8 Globulin (1.9 - 4.2 gm/dL) 2.9 Albumin/Globulin Ratio (1.1 - 2.2 %) 1.7 Hematology CBC w Diff NO MAN DIFF REQ NO MAN DIFF REQ WBC (4.8 - 10.8 /CUMM) 6.6 8.4 RBC (4.20 - 5.40 /CUMM) 3.61 L 4.01 L Hgb (12.0 - 16.0 G/DL) 11.8 L 12.8 Hct (37 - 47 %) 34.3 L 37.8 MCV (81.0 - 99.0 FL) 95.3 94.2 MCH (27.0 - 31.0 PG) 32.8 H 31.9 H MCHC (33.0 - 37.0 G/DL) 34.4 33.9 RDW (11.5 - 14.5 %) 13.9 13.6 Plt Count (130 - 400 /CUMM) 237 282 MPV (7.4 - 10.4 FL) 7.9 7.7 Gran % (42.2 - 75.2 %) 91.0 H 93.8 H Lymphocytes % (20.5 - 51.1 %) 7.9 L 5.4 L Monocytes % (1.7 - 9.3 %) 1.1 L 0.6 L Eosinophils % (0 - 5 %) 0 0.1 Basophils % (0.0 - 2.0 %) 0 0.1 Absolute Granulocytes (1.4 - 6.5 /CUMM) 6.0 7.8 H Absolute Lymphocytes (1.2 - 3.4 /CUMM) 0.5 L 0.4 L Absolute Monocytes (0.10 - 0.60 /CUMM) 0.1 0 L Absolute Eosinophils (0.0 - 0.7 /CUMM) 0 0 Absolute Basophils (0.0 - 0.2 /CUMM) 0 0 05/24 1631 Toxicology Urine Opiates Screen (>2000 NG/ML) 1722.00 Methadone Screen (>300 NG/ML) 53 Barbiturate Screen (>200 NG/ML) < 60 Ur Phencyclidine Scrn (>25 NG/ML) < 6.00 Amphetamines Screen (>1000 NG/ML) > 1450 H U Benzodiazepines Scrn (>200 NG/ML) > 800 H Urine Cocaine Screen (>300 NG/ML) < 50 Urine Cannabis Screen (>50 NG/ML) < 5.00 Urines Urine Color (YEL,AMB,STR) YEL Urine Clarity (CLEAR) CLEAR Urine pH (5.0 - 8.0) 6.0 Ur Specific [place] (1.001 - 1.035) 1.015 Urine Protein (NEG,<30 MG/DL) NEG Urine Ketones (NEG) NEG Urine Nitrite (NEG) NEG Urine Bilirubin (NEG) NEG Urine Urobilinogen (0.1 - 1.0 EU/dl) 0.2 Ur Leukocyte Esterase (NEG) TRACE H Ur Microscopic SEDIMENT EXAMINED Urine RBC (0 - 5 /HPF) RARE Urine WBC (0 - 2 /HPF) RARE Ur Epithelial Cells (NONE,FEW) FEW Urine Bacteria (NEG/NONE) MOD H Urine Hemoglobin (NEG) NEG Urine Glucose (N MG/DL) NEG A/P: 57-year-old female with past medical history significant for multiple sclerosis diagnosed 20 years ago and has been maintained on cyclophosphamide, hypertension, hyperlipidemia, major depression, hypothyroidism is admitted with multiple recurrent falls likely secondary to multiple sclerosis exacerbation. Patient currently on IV Solu-Medrol. Will likely need 5 doses. PT will be consulted. Will consult Dr. Merino. Patient will get brain MRI. Patient's by mouth intake is adequate therefore we can likely stop the IV fluids. Continue the rest of the management. Patient on heparin subcutaneous for DVT prophylaxis. She will be seen by physical therapy.
[2018-01-28 14:00] VITALS: BP 112/60
--- NOTE | 2018-01-28 14:35 | Patient Discharge Instructions ---
Discharge Instructions General Discharge Information You were seen/treated for: Multiple sclerosis exacerbation Watch for these problems: In case of weakness, numbness, falls, altered sensation please go to the nearest emergency room Special Instructions: These follow-up with your primary care provider/neurologist within 1-2 weeks of discharge and let them know about your recent admission at [facility] Diet Continue normal diet: Yes Activity Full Activity/No Limits: No Activity Self Limited: Yes Acute Coronary Syndrome Inclusion Criteria At DC or during hospital stay patient has or had the following: ACS DIAGNOSIS No Discharge Core Measures Meds if any: Prescribed or Continued at Discharge Meds if any: NOT Prescribed or Continued at Discharge Congestive Heart Failure Inclusion Criteria At DC or during hospital stay patient has or had the following: CHF DIAGNOSIS No Discharge Core Measures Meds if any: Prescribed or Continued at Discharge Meds if any: NOT Prescribed or Continued at Discharge Cerebrovascular accident Inclusion Criteria At ND or during hospital stay patient has or had the following: CVA/TIA Diagnosis No Discharge Core Measures Meds if any: Prescribed or Continued at Discharge Meds if any: NOT Prescribed or Continued at Discharge Venous thromboembolism Inclusion Criteria VTE Diagnosis No VTE Type NONE VTE Confirmed by (Test) NONE Discharge Core Measures - Per Current guidelines, there needs to be overlap - treatment for the first 5 days of Warfarin therapy. - If discharged on Warfarin prior to 5 days of - overlap therapy, the patient will need to be - assessed for post discharge needs including - *Post discharge parental anticoagulation - *Warfarin and/or parental anticoagulation education - *Follow up date to check INR post discharge At least 5 days overlap therapy as Inpatient No Meds if any: Prescribed or Continued at Discharge Note: Overlap Therapy is Warfarin and Anticoagulant Meds if any: NOT Prescribed or Continued at Discharge
[2018-01-28] MEDS ORDERED: MEDROL4 M2 PO (14:41)
--- NOTE | 2018-01-28 15:18 | Discharge Summary ---
Hospital Course Allergies: Coded Allergies: venom-honey bee (bee venom (honey bee)) (THROAT CLOSES 11/26/15) Uncoded Allergies: ANY INSECT BITES (WELTS 01/27/18) Discharge Instructions Medications at Discharge Discharge Medications: Stop taking the following medications: Levothyroxine Sodium (Synthroid) 150 MCG TABLET ORAL DAILY Qty = 30 Continue taking these medications: Latanoprost (Xalatan) 0.005 % DROPS 1 Drop Both Eyes Every night Qty = 3 Comments: NOT GIVEN IN HOSPITAL Cyanocobalamin (Vitamin B-12) (Cyanocobalamin Injection) 1,000 MCG/ML VIAL 1 Milliliters INTRAMUSC EVERY WEDNESDAY Qty = 10 Comments: NOT GIVEN IN HOSPITAL Gabapentin (Gabapentin) 600 MG TABLET 1 Tablet ORAL 5XDAILY Qty = 150 Comments: Last Taken:01/30/18 Time:13:52 Zolpidem Tartrate (Zolpidem Tartrate) 10 MG TABLET 1 Tablet ORAL TAKE AT BEDTIME as needed for SLEEP Qty = 30 Comments: Last Taken:01/29/18 Time:21:04 Diazepam (Diazepam) 2 MG TABLET 1 Tablet ORAL THREE TIMES DAILY Qty = 90 Comments: Last Taken:01/30/18 Time:14:24 Oxycodone HCl (Oxycontin) 10 MG TAB.ER.12H 1 Tablet ORAL TWICE DAILY Qty = 90 Comments: Last Taken:01/30/18 Time:08:42 Dextroamphetamine/Amphetamine (Dextroamp-Amphetamin 10 MG Tab) 10 MG TABLET 1 Tablet ORAL THREE TIMES DAILY Qty = 90 Comments: NOT GIVEN IN HOSPITAL Atorvastatin Calcium (Atorvastatin Calcium) 10 MG TABLET 1 Tablet ORAL DAILY Qty = 90 Comments: Last Taken:01/30/18 Time:16:47 Mirabegron (Myrbetriq) 50 MG TAB.ER.24H 1 Tablet ORAL DAILY Qty = 30 Comments: Last Taken:01/30/18 Time:08:42 Duloxetine HCl (Duloxetine HCl) 60 MG CAPSULE.DR 1 Capsule ORAL DAILY Qty = 30 Comments: Last Taken:01/30/18 Time:08:42 Pantoprazole Sodium (Pantoprazole Sodium) 20 MG TABLET.DR 1 Tablet ORAL DAILY Qty = 90 Comments: Last Taken:01/30/18 Time:06:40 OMEPRAZOLE GIVEN Lisinopril (Lisinopril) 5 MG TABLET 1 Tablet ORAL TAKE AT BEDTIME Qty = 30 Comments: Last Taken:01/30/18 Time:08:42 Prednisone (Prednisone) 50 MG TABLET 1 Tablet ORAL As Directed Qty = 20 Instructions: TAKES IT NEEDED DURING AN EXACERBATION, NOT ON A DAILY BASIS Comments: Last Taken:01/30/18 Time:13:53 IV SOLUMEDROL Venlafaxine HCl (Venlafaxine HCl ER) 150 MG CAP.ER.24H 2 Capsule ORAL DAILY Comments: Last Taken:01/30/18 Time:08:42 Lubiprostone (Amitiza) 8 MCG CAPSULE 1 Capsule ORAL DAILY Qty = 30 Comments: Last Taken:01/30/18 Time:08:42 Baclofen (Baclofen) 10 MG TABLET 1 Tablet ORAL Qty = 150 Comments: Last Taken:01/27/18 Time:13:52 Olanzapine (Olanzapine) 10 MG TABLET 1 Tablet ORAL DAILY Qty = 30 Comments: Last Taken:01/30/18 Time:08:42 Furosemide (Furosemide) 20 MG TABLET 1 Tablet ORAL DAILY as needed for LEG SWELLING Qty = 20 Instructions: ONLY NEEDED FOR LEG SWELLING Comments: NOT GIVEN IN HOSPITAL Hydrocodone/Acetaminophen (Hydrocodon-Acetaminophen 5-325) 5 MG-325 MG TABLET 1 Tablet ORAL EVERY 6 HOURS NEEDED as needed for pain Comments: Last Taken:01/30/18 Time:0843 Start taking the following new medications: Methylprednisolone. (Medrol) 4 MG TAB.DS.PK 1 Dose Pack ORAL As Directed Qty = 1 No Refills Instructions: 6 on day 1 then reduce by one tablet daily until gone. Comments: 6 on day 1 and reduced by 1 tab until it is gone. Levothyroxine Sodium (Levothyroxine Sodium) 137 MCG TABLET 0.137 Milligram ORAL DAILY BEFORE BREAKFAST Qty = 30 No Refills Comments: Last Taken:01/30/18 Time:06:45
[2018-01-28 16:00] VITALS: BP 118/78
[2018-01-28 21:16] VITALS: BP 132/84
[2018-01-29 06:41] VITALS: BP 129/79
--- NOTE | 2018-01-29 08:18 | PN- Housestaff ---
Subjective Follow-up For: Multiple sclerosis exacerbation Subjective: Patient seen and examined at bedside no overnight events no complaints. She denies altered sensation, fall, loss of consciousness, weakness. Review of Systems Constitutional: Reports: no symptoms, see HPI. Objective Last 24 Hrs of Vital Signs/I&O Vital Signs Date Time Temp Pulse Resp B/P B/P Pulse O2 O2 Flow FiO2 Mean Ox Delivery Rate 01/29 0855 97.6 96 18 124/68 93 Room Air 01/29 0845 78 118/80 01/29 0641 98.0 78 18 129/79 95 01/28 2116 98.1 80 18 132/84 95 Room Air 01/28 1600 98.0 80 16 118/78 99 Room Air 01/28 1400 97.4 100 18 112/60 93 Room Air Intake & Output 01/29 1600 01/29 0800 01/29 0000 Intake Total 480 240 Output Total 350 Balance 130 240 Intake, Oral 480 240 Output, Urine 350 Physical Exam General Appearance: Alert, Oriented X3, Cooperative, No Acute Distress Cardiovascular: Regular Rate, Normal S1, Normal S2 Lungs: Normal Air Movement Abdomen: Soft, No Tenderness, No Hepatospenomegaly Neurological: Normal Speech, Strength at 5/5 X4 Ext, Normal Tone, Sensation Intact Current Medications: Current Medications Sig/Tess Start time Last Medication Dose Route Stop Time Status Admin Atorvastatin Calcium 10 MG 1700 01/28 1700 AC 01/28 PO 1812 Baclofen 10 MG TID 01/28 0900 AC 01/29 PO 0844 Diazepam 2 MG TID 01/27 2144 AC 01/29 PO 0845 Docusate Sodium 100 MG BID 01/29 0845 AC 01/29 PO 0846 Duloxetine HCl 60 MG DAILY 01/28 0900 AC 01/29 PO 0846 Gabapentin 600 MG Q8 01/27 2200 AC 01/29 PO 0514 Guaifenesin 600 MG Q12 01/28 1500 AC 01/29 PO 0845 Heparin Sodium 5,000 UNIT Q8 01/27 2200 AC 01/29 (Porcine) SC 0514 Hydrocodone Bitart/ 1 TAB Q6PRN PRN 01/28 0245 AC Acetaminophen PO Insulin Aspart 0 TIDAC 01/29 0900 AC 01/29 SC 0902 Levothyroxine Sodium 0.15 MG DAILY AC 01/28 0700 AC 01/29 PO 0515 Lisinopril 5 MG DAILY 01/28 09 AC 01/29 PO 0845 Lubiprostone 8 MCG DAILY 01/28 0900 AC 01/29 PO 0846 Methylprednisolone 1,000 MG 1800 01/28 1800 AC 01/28 Dextrose/Water 1,000 ML IV 1810 Mirabegron 50 MG DAILY 01/28 09 AC 01/29 PO 0844 Olanzapine 10 MG DAILY 01/28 09 AC 01/29 PO 0846 Omeprazole 20 MG DAILY AC 01/28 0700 AC 01/29 PO 0515 Oxycodone HCl 10 MG BID 01/27 2149 AC 01/29 PO 0845 Patient Medication 1 ED ONE ONE 01/28 1430 DC Teaching ED 01/28 1431 Polyethylene Glycol 17 GM DAILY 01/29 09 AC 01/29 PO 0902 Sodium Chloride 1,000 ML Q20H 01/28 0345 DC 01/28 IV 01/28 2344 0534 Venlafaxine HCl 150 MG 01/28 08 AC 01/29 PO 0846 Zolpidem Tartrate 10 MG AT BEDTIME NEED.. 01/27 2200 AC 01/28 PO 2121 Last 24 Hrs of Lab/Tae Results Last 24 Hrs of Labs/Mics: Laboratory Tests 01/29/18 0701: CBC w Diff Pending, WBC Pending, RBC Pending, Hgb Pending, Hct Pending, MCV Pending, MCH Pending, MCHC Pending, RDW Pending, Plt Count Pending, MPV Pending, Gran % Pending, Lymphocytes % Pending, Monocytes % Pending, Eosinophils % Pending, Basophils % Pending, Absolute Granulocytes Pending, Absolute Lymphocytes Pending, Absolute Monocytes Pending, Absolute Eosinophils Pending, Absolute Basophils Pending Assessment/Plan Assessment: Ms Rocha is a 57 year old woman w/ a PMHx of primary progressive MS, hypertension, hyperlipidemia, major depression, hypothyroidism came to the hospital with a chief concern of multiple falls recently. Assessment and plan 1. Multiple sclerosis-exacerbation * Patient admitted for multiple sclerosis exacerbation and being treated with IV [id number] 2 Patient says she feels better today. Spoke with Dr. Merino over the phone yesterday who suggested to continue IV Solu-Medrol for total 3 days and send the patient home with Medrol Dosepak. At this point he doesn't feel the need for MRI brain/lumbar spine. * Frequent falls-we will place a physical therapy consult to help with the ambulation and gait stability. * Continue rest of her chronic medications. * home dose Lasix and amphetamine held. Need to confirm with the primary care physician/neurologist if the patient is on the above medications. * Code-full code * Diet-regular diet Plan-physical therapy and possible discharge tomorrow Problem List: 1. Frequent falls 2. Exacerbation of multiple sclerosis Pain Ratin Pain Location: none Pain Goal: Remain pain free Pain Plan: tylenol Tomorrow's Labs & Rationales: cbc
[2018-01-29 08:28] LABS: ABSOLUTE BASOPHIL COUNT 0 /CUMM (0.0-0.2); ABSOLUTE EOSINOPHIL COUNT 0 /CUMM (0.0-0.7); ABSOLUTE GRANULOCYTE CT 7.5 /CUMM (1.4-6.5); ABSOLUTE LYMPH COUNT 0.4 /CUMM (1.2-3.4); ABSOLUTE MONOCYTE COUNT 0.3 /CUMM (0.10-0.60); BASOPHIL % 0 % (0.0-2.0); EOSINOPHIL % 0 % (0-5); HEMATOCRIT 32.7 % (37-47); MEAN CORPUSCULAR HGB 32.3 PG (27.0-31.0); MEAN PLATELET VOLUME 8.1 FL (7.4-10.4); PLATELET COUNT 236 /CUMM (130-400); RBC DISTRIBUTION WIDTH 14.1 % (11.5-14.5); RED BLOOD CELL CT 3.44 /CUMM (4.20-5.40); WHITE BLOOD CELL COUNT 8.2 /CUMM (4.8-10.8)
[2018-01-29 08:55] VITALS: BP 124/68
[2018-01-29 10:17] LABS: GRANULOCYTE % 91.8 % (42.2-75.2)
--- NOTE | 2018-01-29 11:58 | PN- Att Addend ---
Attending Addendum Attending Brief Note Patient seen and examined. Plan of care discussed with the medical team and the patient. Available lab work and radiology test reports were reviewed. Exam: General: Patient awake alert oriented without any distress CVS: S1 plus S2 without any murmur or gallops Chest: Few scattered crepitation without any wheeze. There is no respiratory distress. Abdomen: Soft non-tender, bowel sound present, no guarding or rebound VP COMPLIANCE: Awake alert oriented without any focal neuro deficit and follows commands appropriately Extremities: No edema; no clubbing or cyanosis noted Assessment * MS exacerbation * History of frequent falls * Dehydration with elevated BUN * Hypercalcemia * Hyperglycemia * Transaminitis Plan * Continue IV Solu Medrol to complete 3 days; plan then will be to switch to Medrol Dosepak * Check TSH and free T4 * Check intact PTH; check vitamin D level * Repeat Level Tomorrow Current Medications Sig/Tess Start time Last Medication Dose Route Stop Time Status Admin Atorvastatin Calcium 10 MG 1700 01/28 1700 AC 01/28 PO 1812 Baclofen 10 MG TID 01/28 0900 AC 01/29 PO 0844 Diazepam 2 MG TID 01/27 2144 AC 01/29 PO 0845 Docusate Sodium 100 MG BID 01/29 0845 AC 01/29 PO 0846 Duloxetine HCl 60 MG DAILY 01/28 09 AC 01/29 PO 0846 Gabapentin 600 MG Q8 01/27 2200 AC 01/29 PO 0514 Guaifenesin 600 MG Q12 01/28 1500 AC 01/29 PO 0845 Heparin Sodium 5,000 UNIT Q8 01/27 2200 AC 01/29 (Porcine) SC 0514 Hydrocodone Bitart/ 1 TAB Q6PRN PRN 01/28 0245 AC Acetaminophen PO Insulin Aspart 0 TIDAC 01/29 09 AC 01/29 SC 0902 Levothyroxine Sodium 0.15 MG DAILY AC 01/28 0700 AC 01/29 PO 0515 Lisinopril 5 MG DAILY 01/28 09 AC 01/29 PO 0845 Lubiprostone 8 MCG DAILY 01/28 09 AC 01/29 PO 0846 Methylprednisolone 1,000 MG 1800 01/28 1800 AC 01/28 Dextrose/Water 1,000 ML IV 1810 Mirabegron 50 MG DAILY 01/28 09 AC 01/29 PO 0844 Olanzapine 10 MG DAILY 01/28 09 AC 01/29 PO 0846 Omeprazole 20 MG DAILY 01/28 0700 01/29 PO 0515 Oxycodone HCl 10 MG BID 01/279 01/29 PO 0845 Patient Medication 1 ED ONE ONE 01/28 1430 ME Teaching ED 01/28 1431 Polyethylene Glycol 17 GM DAILY 01/29 0900 01/29 PO 0902 Sodium Chloride 1,000 ML Q20H 01/28 0345 DC 01/28 IV 01/28 2344 0534 Venlafaxine HCl 150 MG 01/28 08 01/29 PO 0846 Zolpidem Tartrate 10 MG AT BEDTIME NEED.. 01/270 01/28 PO 2121 Laboratory Tests 01/29/18 0701: CBC w Diff NO MAN DIFF REQ, RBC 3.44 L, MCV 95.0, MCH 32.3 H, MCHC 34.0, RDW 14.1, MPV 8.1, Gran % 91.8 H, Lymphocytes % 5.1 L, Monocytes % 3.1, Eosinophils % 0, Basophils % 0, Absolute Granulocytes 7.5 H, Absolute Lymphocytes 0.4 L, Absolute Monocytes 0.3, Absolute Eosinophils 0, Absolute Basophils 0 01/28/18 0644: Anion Gap 11, Estimated GFR > 60, BUN/Creatinine Ratio 27.5 H, Total Bilirubin 0.4, Direct Bilirubin 0.2, AST 68 H, ALT 71 H, Alkaline Phosphatase 111, Total Protein 6.8, Albumin 4.3, CBC w Diff NO [place] DIFF REQ, RBC 3.61 L, MCV 95.3, MCH 32.8 H, MCHC 34.4, RDW 13.9, MPV 7.9, Gran % 91.0 H, Lymphocytes % 7.9 L, Monocytes % 1.1 L, Eosinophils % 0, Basophils % 0, Absolute Granulocytes 6.0, Absolute Lymphocytes 0.5 L, Absolute Monocytes 0.1, Absolute Eosinophils 0, Absolute Basophils 0 01/27/18 1753: Anion Gap 14, Estimated GFR > 60, BUN/Creatinine Ratio 26.3 H, Glucose 163 H, Calcium 10.3 H, Total Bilirubin 0.5, AST 84 H, ALT 65 H, Alkaline Phosphatase 107, Total Protein 7.7, Albumin 4.8, Globulin 2.9, Albumin/Globulin Ratio 1.7, CBC w Diff NO MAN DIFF REQ, RBC 4.01 L, MCV 94.2, MCH 31.9 H, MCHC 33.9, RDW 13.6, MPV 7.7, Gran % 93.8 H, Lymphocytes % 5.4 L, Monocytes % 0.6 L, Eosinophils % 0.1, Basophils % 0.1, Absolute Granulocytes 7.8 H, Absolute Lymphocytes 0.4 L, Absolute Monocytes 0 L, Absolute Eosinophils 0, Absolute Basophils 0 01/27/18 1631: Urine Opiates Screen 1722.00, Methadone Screen 53, Barbiturate Screen < 60, Ur Phencyclidine Scrn < 6.00, Amphetamines Screen > 1450 H, U Benzodiazepines Scrn > 800 H, Urine Cocaine Screen < 50, Urine Cannabis Screen < 5.00, Urine Color YEL, Urine Clarity CLEAR, Urine pH 6.0, Ur Specific [place] 1.015, Urine Protein NEG, Urine Ketones NEG, Urine Nitrite NEG, Urine Bilirubin NEG, Urine Urobilinogen 0.2, Ur Leukocyte Esterase TRACE H, Ur Microscopic SEDIMENT EXAMINED, Urine RBC RARE, Urine WBC RARE, Ur Epithelial Cells FEW, Urine Bacteria MOD H, Urine Hemoglobin NEG, Urine Glucose NEG Vital Signs Date Time Temp Pulse Resp B/P B/P Pulse O2 O2 Flow FiO2 Mean Ox Delivery Rate 01/29 0855 97.6 96 18 124/68 93 Room Air 01/29 0845 78 118/80 01/29 0800 95 Room Air 01/29 0641 98.0 78 18 129/79 95 01/28 2116 98.1 80 18 132/84 95 Room Air 01/28 1600 98.0 80 16 118/78 99 Room Air 01/28 1400 97.4 100 18 112/60 93 Room Air Intake & Output 01/29 1600 01/29 0800 01/29 0000 Intake Total 480 240 Output Total 450 350 Balance -450 130 240 Intake, Oral 480 240 Output, Urine 450 350
[2018-01-29 13:57] VITALS: BP 128/74
[2018-01-29 21:54] VITALS: BP 120/70
--- NOTE | 2018-01-29 22:45 | Cons- Endocrinology ---
General Information and HPI Consulting Request Date of Consult: 01/29/18 Requested By: medical team Reason for Consult: evaluation and management of hypothyroidism and steroid induced hyperglycemia Source of Information: patient, old records Exam Limitations: no limitations History of Present Illness: 57 y/o female who has had hypothyroidism for years and has been on Levothyroxine 150 mcg daily for the past 3 years, was admitted for ? MS exacerbation and has been on Solumedrol 1000 mg iv daily since 01/27. Blood work showed TSH < 0.015 and T4 22.7. Her FSGs were 142, 334, 204 and 244. She has been on Novolog coverage before meals. She denied having any palpitations. Allergies/Medications Allergies: Coded Allergies: venom-honey bee (bee venom (honey bee)) (THROAT CLOSES 11/26/15) Uncoded Allergies: ANY INSECT BITES (WELTS 01/27/18) Home Med List: Atorvastatin Calcium 10 MG TABLET 1 TAB PO DAILY CHOLESTEROL (Reported) Baclofen 10 MG TABLET 1 TAB PO 5XDAILY MUSCLE RELAXER (Reported) Cyanocobalamin (Vitamin B-12) (Cyanocobalamin Injection) 1,000 MCG/ML VIAL 1 ML IM QWED SUPPLEMENT (Reported) Dextroamphetamine/Amphetamine (Dextroamp-Amphetamin 10 MG Tab) 10 MG TABLET 1 TAB PO TID ALERTNESS (Reported) Diazepam 2 MG TABLET 1 TAB PO TID MUSCLE SPASMS (Reported) Duloxetine HCl 60 MG CAPSULE.DR 1 CAP PO DAILY DEPRESSION (Reported) Furosemide 20 MG TABLET 1 TAB PO DAILY PRN LEG SWELLING (Reported) ONLY NEEDED FOR LEG SWELLING Gabapentin 600 MG TABLET 1 TAB PO 5XDAILY NERVE PAIN (Reported) Hydrocodone/Acetaminophen (Hydrocodon-Acetaminophen 5-325) 5 MG-325 MG TABLET 1 TAB PO Q6PRN PRN pain (Reported) Latanoprost (Xalatan) 0.005 % DROPS 1 GTT OU QPM GLAUCOMA (Reported) Levothyroxine Sodium (Synthroid) 150 MCG TABLET 1 TAB PO DAILY THYROID ( Reported) Lisinopril 5 MG TABLET 1 TAB PO QHS BP (Reported) Lubiprostone (Amitiza) 8 MCG CAPSULE 1 CAP PO DAILY GI (Reported) Methylprednisolone. (Medrol) 4 MG TAB.DS.PK 1 DP PO AD multiple sclerosis 6 on day 1 then reduce by one tablet daily until gone Mirabegron (Myrbetriq) 50 MG TAB.ER.24H 1 TAB PO DAILY BLADDER (Reported) Olanzapine 10 MG TABLET 1 TAB PO DAILY ANXIETY (Reported) Oxycodone HCl (Oxycontin) 10 MG TAB.ER.12H 1 TAB PO BID pain (Reported) Pantoprazole Sodium 20 MG TABLET.DR 1 TAB PO DAILY GI (Reported) Prednisone 50 MG TABLET 1 TAB PO AD STEROID (Reported) TAKES IT NEEDED DURING AN EXACERBATION, NOT ON A DAILY BASIS Venlafaxine HCl (Venlafaxine HCl ER) 150 MG CAP.ER.24H 2 CAP PO DAILY DEPRESSION (Reported) Zolpidem Tartrate 10 MG TABLET 1 TAB PO QHS PRN SLEEP (Reported) Review of Systems Review of Systems Constitutional: Reports: see HPI. Cardiovascular: Denies: chest pain, palpitations. Respiratory: Denies: short of breath. GI: Denies: abdominal pain. Genitourinary: Denies: dysuria. Hematologic/Endocrine: Denies: polyuria, polydipsia. Past History Travel History Traveled to [place] past 21 day No Medical History Blood Transfusion Hx: No Neurological: multiple sclerosis EENT: NONE Cardiovascular: hypertension, hyperlipidemia Respiratory: NONE Gastrointestinal: GERD, irritable bowel syndrome Hepatic: NONE Renal: urinary incontinence, SELF CATHETER PRN Musculoskeletal: chronic back pain Psychiatric: depression Endocrine: hypothyroidism Blood Disorders: NONE INSPECTOR OPEN DIE/Reproductive: NONE Surgical History Surgical History: non-contributory Psychosocial History Where Do You Live? Home Services at Home: None Primary Language: Malian Smoking Status: Current Everyday Smoker ETOH Use: denies use Illicit Drug Use: denies illicit drug use Functional Ability ADLs Independent: dressing, eating, toileting, bathing. Ambulation: independent IADLs Independent: shopping, housework, finances, food prep, telephone, transportation , medication admin. Exam & Diagnostic Data Last 24 Hrs of Vital Signs/I&O Vital Signs Date Time Temp Pulse Resp B/P B/P Pulse O2 O2 Flow FiO2 Mean Ox Delivery Rate 01/29 2154 98.2 81 20 120/70 94 01/29 1600 Room Air 01/29 1357 98.2 96 18 128/74 93 Room Air 01/29 0855 97.6 96 18 124/68 93 Room Air 01/29 0845 78 118/80 01/29 0800 95 Room Air 01/29 0641 98.0 78 18 129/79 95 Intake & Output 01/29 1600 01/29 0800 01/29 0000 Intake Total 910 480 240 Output Total 750 350 Balance 160 130 240 Intake, IV 10 Intake, Oral 900 480 240 Number 0 Bowel Movements Output, Urine 750 350 Physical Exam General Appearance: no apparent distress Neck: normal inspection Respiratory: lungs clear Cardiovascular: regular rate/rhythm Extremities: no edema Labs/Tae Results: Laboratory Tests 01/29 01/28 0701 0644 Chemistry Sodium (137 - 145 mmol/L) 137 Potassium (3.5 - 5.1 mmol/L) 4.5 Chloride (98 - 107 mmol/L) 101 Carbon Dioxide (22 - 30 mmol/L) 25 Anion Gap (5 - 16) 11 BUN (7 - 17 mg/dL) 22 H Creatinine (0.5 - 1.0 mg/dL) 0.8 Estimated GFR (>60 ml/min) > 60 BUN/Creatinine Ratio (7 - 25 %) 27.5 H Total Bilirubin (0.2 - 1.3 mg/dL) 0.4 Direct Bilirubin (< 0.4 mg/dL) 0.2 AST (14 - 36 U/L) 68 H ALT (9 - 52 U/L) 71 H Alkaline Phosphatase (<127 U/L) 111 Total Protein (6.3 - 8.2 g/dL) 6.8 Albumin (3.5 - 5.0 g/dL) 4.3 25-OH Vitamin D Total (30 - 100 ng/ml) 53.3 TSH (0.270 - 4.200 uIU/mL) < 0.015 L Thyroxine (T4) (4.5 - 10.9 ug/dL) 22.7 H PTH Intact (18.4 - 80.1 pg/ML) 51.8 Hematology CBC w Diff NO MAN DIFF REQ NO MAN DIFF REQ WBC (4.8 - 10.8 /CUMM) 8.2 6.6 RBC (4.20 - 5.40 /CUMM) 3.44 L 3.61 L Hgb (12.0 - 16.0 G/DL) 11.1 L 11.8 L Hct (37 - 47 %) 32.7 L 34.3 L MCV (81.0 - 99.0 FL) 95.0 95.3 MCH (27.0 - 31.0 PG) 32.3 H 32.8 H MCHC (33.0 - 37.0 G/DL) 34.0 34.4 RDW (11.5 - 14.5 %) 14.1 13.9 Plt Count (130 - 400 /CUMM) 236 237 MPV (7.4 - 10.4 FL) 8.1 7.9 Gran % (42.2 - 75.2 %) 91.8 H 91.0 H Lymphocytes % (20.5 - 51.1 %) 5.1 L 7.9 L Monocytes % (1.7 - 9.3 %) 3.1 1.1 L Eosinophils % (0 - 5 %) 0 0 Basophils % (0.0 - 2.0 %) 0 0 Absolute Granulocytes (1.4 - 6.5 /CUMM) 7.5 H 6.0 Absolute Lymphocytes (1.2 - 3.4 /CUMM) 0.4 L 0.5 L Absolute Monocytes (0.10 - 0.60 /CUMM) 0.3 0.1 Absolute Eosinophils (0.0 - 0.7 /CUMM) 0 0 Absolute Basophils (0.0 - 0.2 /CUMM) 0 0 Assessment/Plan Assessment/Plan 57 y/o female who has had hypothyroidism for years and has been on Levothyroxine 150 mcg daily for the past 3 years, was admitted for ? MS exacerbation and has been on Solumedrol 1000 mg iv daily since 01/27. Blood work showed TSH < 0.015 and T4 22.7. But she denied having palpitation. She has been on Novolog coverage before meals. But her FSGs were not controlled. 1. abnormal TFT--- which could be due to large dose of steroid she has been receiving. ---continue the current Levothyroxine 150 mcg daily for now as she has been on this dosage for the past 3 years; ------ repeat TSH, check free T4 and TT3. 2. steroid induced hyperglycemia: ---recommend checking HbA1C ---adjust Novolog coverage before meals and add Novolog coverage at bedtime; detail see the inpatient DM orders; --- monitor FSGs will follow. Inpatient Diabetes Orders Before Each Meal: Bolus Insulin: Novolog < 80 mg/dl: no coverage 80-100 mg/dl: 3 units 101-120 mg/dl: 3 units 121-150 mg/dl: 3 units 151-200 mg/dl: 4 units 201-250 mg/dl: 5 units 251-300 mg/dl: 6 units 301-350 mg/dl: 7 units 351-400 mg/dl: 8 units > 400 mg/dl: 9 units Bedtime: Bolus Insulin: Novolog < 80 mg/dl: no coverage 80-100 mg/dl: no coverage 101-120 mg/dl: no coverage 121-150 mg/dl: no coverage 151-200 mg/dl: no coverage 201-250 mg/dl: no coverage 251-300 mg/dl: 2 units 301-350 mg/dl: 3 units 351-400 mg/dl: 4 units > 400 mg/dl: 5 units Consult Acknowledgment - Thank you for your consult request.
[2018-01-30 06:41] VITALS: BP 136/82
--- NOTE | 2018-01-30 08:30 | PN- Housestaff ---
Subjective Follow-up For: Multiple sclerosis exacerbation Subjective: Patient reports her weakness has been the same. Denies nausea, vomiting, fever, chills. No acute events overnight Review of Systems Constitutional: Reports: see HPI. Objective Last 24 Hrs of Vital Signs/I&O Vital Signs Date Time Temp Pulse Resp B/P B/P Pulse O2 O2 Flow FiO2 Mean Ox Delivery Rate 01/30 0842 152/72 01/30 0800 93 Room Air 01/30 0641 98.0 63 20 136/82 93 01/30 0000 Room Air 01/29 2154 98.2 81 20 120/70 94 01/29 1600 Room Air 01/29 1357 98.2 96 18 128/74 93 Room Air Intake & Output 01/30 1600 01/30 0800 01/30 0000 Intake Total 120 1000 Output Total Balance 120 1000 Intake, IV 1000 Intake, Oral 120 Number 1 Bowel Movements Physical Exam General Appearance: Alert, Oriented X3, Cooperative Cardiovascular: Regular Rate, Normal S1, Normal S2 Lungs: Clear to Auscultation, Normal Air Movement Abdomen: Normal Bowel Sounds, Soft, No Tenderness Extremities: No Edema Current Medications: Current Medications Sig/Tess Start time Last Medication Dose Route Stop Time Status Admin Atorvastatin Calcium 10 MG 1700 01/28 1700 AC 01/29 PO 1709 Baclofen 10 MG TID 01/28 0900 AC 01/30 PO 0842 Diazepam 2 MG TID 01/27 2144 AC 01/30 PO 0842 Docusate Sodium 100 MG BID 01/29 0845 AC 01/30 PO 0842 Duloxetine HCl 60 MG DAILY 01/28 0900 AC 01/30 PO 0842 Gabapentin 600 MG Q8 01/27 2200 AC 01/30 PO 0609 Guaifenesin 600 MG Q12 01/28 1500 AC 01/30 PO 0842 Heparin Sodium 5,000 UNIT Q8 01/27 2200 AC 01/30 (Porcine) SC 0609 Hydrocodone Bitart/ 1 TAB Q6PRN PRN 01/28 0245 AC Acetaminophen PO Insulin Aspart 0 TIDAC/HS 01/30 0800 AC 01/30 SC 0843 Insulin Aspart 0 TIDAC 01/29 0900 DC 01/29 SC 1709 Levothyroxine Sodium 0.137 MG DAILY AC 01/31 0700 AC PO Levothyroxine Sodium 0.15 MG DAILY AC 01/28 0700 DC 01/30 PO 0609 Lisinopril 5 MG DAILY 01/28 09 AC 01/30 PO 0842 Lubiprostone 8 MCG DAILY 01/28 09 AC 01/30 PO 0842 Methylprednisolone 1,000 MG ONCE ONE 01/30 1145 UNir Dextrose/Water 1,000 ML IV 01/30 1146 Methylprednisolone 1,000 MG 1800 01/28 1800 AC 01/29 Dextrose/Water 1,000 ML IV 1740 Mirabegron 50 MG DAILY 01/28 09 AC 01/30 PO 0842 Olanzapine 10 MG DAILY 01/28 09 AC 01/30 PO 0842 Omeprazole 20 MG DAILY AC 01/28 0700 AC 01/30 PO 0609 Oxycodone HCl 10 MG BID 01/27 2149 AC 01/30 PO 0843 Polyethylene Glycol 17 GM DAILY 01/29 09 AC 01/30 PO 0842 Vancomycin HCl 1,000 MG ONCE ONE 01/30 1130 CAN Sodium Chloride 250 ML IV 01/30 1229 Venlafaxine HCl 150 MG 01/28 08 AC 01/30 PO 0842 Zolpidem Tartrate 10 MG AT BEDTIME NEED.. 01/27 220 AC 01/29 PO 2104 Last 24 Hrs of Lab/Tae Results Last 24 Hrs of Labs/Mics: Laboratory Tests 01/30/18 0800: Anion Gap 10, Estimated GFR > 60, BUN/Creatinine Ratio 27.5 H, TSH < 0.015 L, Free T4 2.72 H, Total T3 1.09 Assessment/Plan Assessment: Ms Rocha is a 57 year old woman w/ a PMHx of primary progressive MS, hypertension, hyperlipidemia, major depression, hypothyroidism came to the hospital with a chief concern of multiple falls recently. Assessment and plan 1. Multiple sclerosis-exacerbation * Patient admitted for multiple sclerosis exacerbation and being treated with IV Solu-Medrol. As per Dr. Merino continue IV Solu-Medrol for total 3 days and send the patient home with Medrol Dosepak. At this point he doesn't feel the need for MRI brain/lumbar spine. * PT reports patient stable for home upon discharge * Continue rest of her chronic medications * home dose Lasix and amphetamine held * We will give patient IV Solumedrol prior to discharge today * Her Levothyroxine has been reduced from 150 mcg to 137 as per Endo recommendations * Code-full code * Diet-regular diet Plan-discharge today Problem List: 1. Exacerbation of multiple sclerosis Pain Ratin Pain Location: NA Pain Goal: Remain pain free Pain Plan: NA Tomorrow's Labs & Rationales: none
--- NOTE | 2018-01-30 11:02 | PN- Diabetes ---
Assessment/Plan Diabetes Assessment: 57 y/o female who has had hypothyroidism for years and has been on Levothyroxine 150 mcg daily for the past 3 years, was admitted for ? MS exacerbation and has been on Solumedrol 1000 mg iv daily since 01/27. Blood work showed TSH < 0.015 and T4 22.7. But she denied having palpitation. Repeat TFT on 01/30/2018 showed TSH < 0.015, free T4 2.72 and TT3 1.09. She has been on Novolog coverage before meals. But her FSGs were not controlled. 1. abnormal TFT--- the significantly elevated free T4 unlikely is just due to the large dose of steroid she has been receiving. ---recommend decreasing Levothyroxine to 137 mcg daily for now; ---repeat TSH, check free T4 and TT3 in 2-3 days to look for trend. 2. steroid induced hyperglycemia: Novolog coverage for meals was adjusted; her FSGs were 204, 244, 260 and 126. ---continue the current Novolog coverage before meals and add Novolog coverage at bedtime; --- monitor FSGs will follow. Plan: see above. Subjective Subjective: She has no special complaints this morning. Objective Last 24 Hrs of Vital Signs/I&O Vital Signs Date Time Temp Pulse Resp B/P B/P Pulse O2 O2 Flow FiO2 Mean Ox Delivery Rate 01/30 0842 152/72 01/30 0641 98.0 63 20 136/82 93 01/30 0000 Room Air 01/29 2154 98.2 81 20 120/70 94 01/29 1600 Room Air 01/29 1357 98.2 96 18 128/74 93 Room Air Intake & Output 01/30 1600 01/30 0800 01/30 0000 Intake Total 120 1000 Output Total Balance 120 1000 Intake, IV 1000 Intake, Oral 120 Number 1 Bowel Movements Findings Pertinent Lab/Tae Results: Laboratory Tests 01/30 0800 Chemistry Sodium (137 - 145 mmol/L) 142 Potassium (3.5 - 5.1 mmol/L) 4.0 Chloride (98 - 107 mmol/L) 104 Carbon Dioxide (22 - 30 mmol/L) 28 Anion Gap (5 - 16) 10 BUN (7 - 17 mg/dL) 22 H Creatinine (0.5 - 1.0 mg/dL) 0.8 Estimated GFR (>60 ml/min) > 60 BUN/Creatinine Ratio (7 - 25 %) 27.5 H TSH (0.270 - 4.200 uIU/mL) < 0.015 L Free T4 (0.64 - 1.79 ng/dL) 2.72 H Total T3 (0.97 - 1.69 ng/mL) 1.09
[2018-01-30] MEDS ORDERED: LEVOTHYROXINE137 MCG PO (11:25)
[2018-01-30] MEDS ORDERED: MEDROL4 M2 PO (11:27)
--- NOTE | 2018-01-30 13:09 | PN- Att Addend ---
Attending Addendum Attending Brief Note Patient seen and examined. Plan of care discussed with the medical team and the patient. Available lab work and radiology test reports were reviewed. Patient current stable and denies any new complaints. She has been able to walk with her cane to the bathroom without any difficulty. She has been eating drinking well. Exam: General: Patient awake alert oriented without any distress CVS: S1 plus S2 without any murmur or gallops Chest: Few scattered crepitation without any wheeze. There is no respiratory distress. Abdomen: Soft non-tender, bowel sound present, no guarding or rebound GROOVER RUNNER: Awake alert oriented without any focal neuro deficit and follows commands appropriately Extremities: No edema; no clubbing or cyanosis noted Assessment * MS exacerbation-status post 3 days of IV Solu-Medrol * History of frequent falls * Dehydration with elevated BUN * Hypercalcemia * Hyperglycemia * Transaminitis Plan * After today's dose of IV Solu Medrol switch to Medrol Dosepak * I will suggest decreasing pneumothorax and does given suppressed TSH Patient stable for discharge She should follow Win Merino MD as outpatient Current Medications Sig/Tess Start time Last Medication Dose Route Stop Time Status Admin Atorvastatin Calcium 10 MG 1700 01/28 1700 AC 01/29 PO 1709 Baclofen 10 MG TID 01/28 0900 AC 01/30 PO 0842 Diazepam 2 MG TID 01/27 2144 AC 01/30 PO 0842 Docusate Sodium 100 MG BID 01/29 0845 AC 01/30 PO 0842 Duloxetine HCl 60 MG DAILY 01/28 0900 AC 01/30 PO 0842 Gabapentin 600 MG Q8 01/27 2200 AC 01/30 PO 0609 Guaifenesin 600 MG Q12 01/28 1500 AC 01/30 PO 0842 Heparin Sodium 5,000 UNIT Q8 01/27 2200 AC 01/30 (Porcine) SC 0609 Hydrocodone Bitart/ 1 TAB Q6PRN PRN 01/28 0245 AC Acetaminophen PO Insulin Aspart 0 TIDAC/HS 01/30 0800 AC 01/30 SC 1223 Insulin Aspart 0 TIDAC 01/29 0900 DC 01/29 SC 1709 Levothyroxine Sodium 0.137 MG DAILY AC 01/31 0700 AC PO Levothyroxine Sodium 0.15 MG DAILY AC 01/28 0700 DC 01/30 PO 0609 Lisinopril 5 MG DAILY 01/28 0900 AC 01/30 PO 0842 Lubiprostone 8 MCG DAILY 01/28 09 AC 01/30 PO 0842 Methylprednisolone 1,000 MG ONCE ONE 01/30 1145 AC Dextrose/Water 1,000 ML IV 01/30 1345 Methylprednisolone 1,000 MG 1800 01/28 1800 DC 01/29 Dextrose/Water 1,000 ML IV 1740 Mirabegron 50 MG DAILY 01/28 09 AC 01/30 PO 0842 Olanzapine 10 MG DAILY 01/28 09 AC 01/30 PO 0842 Omeprazole 20 MG DAILY AC 01/28 07 AC 01/30 PO 0609 Oxycodone HCl 10 MG BID 01/27 2149 AC 01/30 PO 0843 Polyethylene Glycol 17 GM DAILY 01/29 09 AC 01/30 PO 0842 Vancomycin HCl 1,000 MG ONCE ONE 01/30 1130 CAN Sodium Chloride 250 ML IV 01/30 1229 Venlafaxine HCl 150 MG 01/28 08 AC 01/30 PO 0842 Zolpidem Tartrate 10 MG AT BEDTIME NEED.. 01/27 2200 AC 01/29 PO 2104 Laboratory Tests 01/30/18 0800: Anion Gap 10, Estimated GFR > 60, BUN/Creatinine Ratio 27.5 H, TSH < 0.015 L, Free T4 2.72 H, Total T3 1.09 01/29/18 0701: PTH Intact 51.8, CBC w Diff NO MAN DIFF REQ, RBC 3.44 L, MCV 95.0, MCH 32.3 H, MCHC 34.0, RDW 14.1, MPV 8.1, Gran % 91.8 H, Lymphocytes % 5.1 L, Monocytes % 3.1, Eosinophils % 0, Basophils % 0, Absolute Granulocytes 7.5 H, Absolute Lymphocytes 0.4 L, Absolute Monocytes 0.3, Absolute Eosinophils 0, Absolute Basophils 0 01/28/18 0644: Anion Gap 11, Estimated GFR > 60, BUN/Creatinine Ratio 27.5 H, Total Bilirubin 0.4, Direct Bilirubin 0.2, AST 68 H, ALT 71 H, Alkaline Phosphatase 111, Total Protein 6.8, Albumin 4.3, 25-OH Vitamin D Total 53.3, TSH < 0.015 L, Thyroxine (T4) 22.7 H, CBC w Diff NO MAN DIFF REQ, RBC 3.61 L, MCV 95.3, MCH 32.8 H, MCHC 34.4, RDW 13.9, MPV 7.9, Gran % 91.0 H, Lymphocytes % 7.9 L, Monocytes % 1.1 L, Eosinophils % 0, Basophils % 0, Absolute Granulocytes 6.0, Absolute Lymphocytes 0.5 L, Absolute Monocytes 0.1, Absolute Eosinophils 0, Absolute Basophils 0 01/27/18 1753: Anion Gap 14, Estimated GFR > 60, BUN/Creatinine Ratio 26.3 H, Glucose 163 H, Calcium 10.3 H, Total Bilirubin 0.5, AST 84 H, ALT 65 H, Alkaline Phosphatase 107, Total Protein 7.7, Albumin 4.8, Globulin 2.9, Albumin/Globulin Ratio 1.7, CBC w Diff NO MAN DIFF REQ, RBC 4.01 L, MCV 94.2, MCH 31.9 H, MCHC 33.9, RDW 13.6, MPV 7.7, Gran % 93.8 H, Lymphocytes % 5.4 L, Monocytes % 0.6 L, Eosinophils % 0.1, Basophils % 0.1, Absolute Granulocytes 7.8 H, Absolute Lymphocytes 0.4 L, Absolute Monocytes 0 L, Absolute Eosinophils 0, Absolute Basophils 0 01/27/18 1631: Urine Opiates Screen 1722.00, Methadone Screen 53, Barbiturate Screen < 60, Ur Phencyclidine Scrn < 6.00, Amphetamines Screen > 1450 H, U Benzodiazepines Scrn > 800 H, Urine Cocaine Screen < 50, Urine Cannabis Screen < 5.00, Urine Color YEL, Urine Clarity CLEAR, Urine pH 6.0, Ur Specific [place] 1.015, Urine Protein NEG, Urine Ketones NEG, Urine Nitrite NEG, Urine Bilirubin NEG, Urine Urobilinogen 0.2, Ur Leukocyte Esterase TRACE H, Ur Microscopic SEDIMENT EXAMINED, Urine RBC RARE, Urine WBC RARE, Ur Epithelial Cells FEW, Urine Bacteria MOD H, Urine Hemoglobin NEG, Urine Glucose NEG Vital Signs Date Time Temp Pulse Resp B/P B/P Pulse O2 O2 Flow FiO2 Mean Ox Delivery Rate 01/30 0842 152/72 01/30 0800 93 Room Air 01/30 0641 98.0 63 20 136/82 93 01/30 0000 Room Air 01/29 2154 98.2 81 20 120/70 94 01/29 1600 Room Air 01/29 1357 98.2 96 18 128/74 93 Room Air Intake & Output 01/30 1600 01/30 0800 01/30 0000 Intake Total 120 1000 Output Total Balance 120 1000 Intake, IV 1000 Intake, Oral 120 Number 1 Bowel Movements
[2018-01-30 15:50] VITALS: BP 140/84
== END 2018-01-30 20:00 | DRG 60 ==
LOC: ERH 15:04 → ERHI 19:52 → 2NB 19:52 → ENRESERV 20:23 → ENTRNSPT 21:02 → EDTRNSPTSTS 21:15 → EDTRNSPT 21:15 → 2NB 21:40 → CMPTRNSPT 22:06 → 2NB 01-28 07:27 → ENPENDDIS 01-30 11:47 → ENTRNSPT 01-30 19:49 → EDTRNSPTSTS 01-30 19:56 → 2NB 01-30 20:00 → CMPTRNSPT 01-30 20:14
PROVIDERS: Internal Medicine Endocrinology, Diabetes & Metabolism; Physician Assistant Medical; Student in an Organized Health Care Education/Training Program
DX: G35 Multiple sclerosis (principal); E83.52 Hypercalcemia; E03.9 Hypothyroidism, unspecified; I10 Essential (primary) hypertension; E78.5 Hyperlipidemia, unspecified; R33.8 Other retention of urine; M06.9 Rheumatoid arthritis, unspecified; W19.XXXA Unspecified fall, initial encounter; Z91.81 History of falling; K21.9 Gastro-esophageal reflux disease without esophagitis; F41.8 Other specified anxiety disorders; F17.200 Nicotine dependence, unspecified, uncomplicated; E86.0 Dehydration; M54.9 Dorsalgia, unspecified; G89.4 Chronic pain syndrome; R74.0 Nonspecific elevation of levels of transaminase and lactic acid dehydrogenase [LDH]; R26.89 Other abnormalities of gait and mobility; K58.9 Irritable bowel syndrome, unspecified; F32.9 Major depressive disorder, single episode, unspecified; R73.9 Hyperglycemia, unspecified
CPT/HCPCS: 2NBSP; 36415; 36592; 71045; 72100; 73610-LT; 80307; 81001; 82436; 96374; 96375; J1040; J1644; J1815; J7060